=== PATIENT | female | born 1960 | race Caucasian/White ===

== ENCOUNTER 2019-02-23 12:29 | Outpatient (CLI) | payer MEDICARE, SELFPAY ==
--- NOTE | 2019-02-23 12:46 | XR_ITS ---
WS: [id number] LUMBAR SPINE TECHNIQUE: 3 views of the lumbar spine CLINICAL INFORMATION: LOW BACK PAIN COMPARISON: January 08, 2016 FINDINGS: Five [id number]-vmb-vbfxzot lumbar vertebral bodies. Postoperative changes lower thoracic and lumbar spine e xtending from T12 through L4. Lamina hooks. Dorsal lateral bone graft material. No evidence of hardwa re loosening. Interbody bone fusion L2-3 with lateral maximus and screw fixation. Grade 1 anterolisthesis L4 on L5 measuring 8 mm. This is increased from 2016. Dorsal interconnecting rods appear intact. Disc space narrowing worse at L4-L5 and L5-S1. XR/XR lumbar spine 2-3V* [id number] IMPRESSION: 1. Prior postoperative changes dorsal laminectomy defects with maximus fixation at T12-L4. 2. Interbody bony fusion with lateral maximus and screw fixation at L2-3. 3. Grade 1 anterolisthesis L4 on L5 is increased from previous. 4. Disc space narrowing worse L4-L5 and L5-S1. 5. No evidence of hardware loosening.
== END 2019-02-23 12:30 | disposition home or self-care (01) ==
LOC: RAD 12:36
PROVIDERS: Family Provider Family Medicine; PCP Family Medicine; Visit Provider Family Medicine
DX: M96.1 Postlaminectomy syndrome, not elsewhere classified (principal); M54.5 Low back pain
CPT/HCPCS: 72100

== ENCOUNTER 2019-04-08 16:10 | Outpatient (CLI) | payer MEDICARE, SELFPAY ==
--- NOTE | 2019-04-08 16:23 | MRR_ITS ---
PROCEDURE INFORMATION: Exam: MR Lumbar Spine Without Contrast. Exam date and time: 04/08/2019 4:45 PM Age: 59 years old Clinical indication: Condition or disease; Other: Lumbar radiculopathy; Prior surgery; Surgery date: 6+ months; Surgery type: Lumbar, date not provided TECHNIQUE: Imaging protocol: Multiplanar magnetic resonance images of the lumbar spine without intravenous contrast. COMPARISON: CR XR lumbar spine 2-3V* [id number] 02/23/2019 1:06 PM FINDINGS: Vertebrae: There is some distortion of detail relating to hardware in place posteriorly from T12 through L5 and along left lateral aspect L2 through L3. Mature interbody fusion is suggested at L2-L3. Perceived narrowing of spinal canal at L5 is at least partially artifactual in nature due to hardware artifacts. No obvious herniation of disc material into the lumbar spinal canal or other gross spinal canal lesions. Small disc protrusions suggested at T10-11 on the left does not produce significant spinal canal narrowing. Spinal cord: Normal signal. No cord compression. Reproductive: Multiple uterine lesions are suggestive of fibroids. Soft tissues: Unremarkable. MR/MR lumbar spine wo con* [id number] IMPRESSION: Some distortion of detail relating to hardware as above. Perceived narrowing spinal canal at L5 is suggested to be at least partially artifactual. No acute findings. Additional details as above.
== END 2019-04-08 16:11 | disposition home or self-care (01) ==
PROVIDERS: Family Provider Family Medicine; PCP Family Medicine; Visit Provider Family Medicine
DX: M54.16 Radiculopathy, lumbar region (principal)
CPT/HCPCS: 72148

== ENCOUNTER 2019-05-20 12:16 | Outpatient (CLI) | payer MEDICARE, SELFPAY ==
--- NOTE | 2019-05-20 12:23 | CT_ITS ---
WS: [id number] CT ABDOMEN AND PELVIS WITH CONTRAST HISTORY: RUQ PAIN TECHNIQUE: Imaging performed of the abdomen and pelvis with IV contrast. Single phase imaging of the abdomen. Coronal and sagittal reformats are submitted. All CT scans at [facility] use at least one of these dose optimization techniques: automated exposure control; mA and/or kV adjustment per patient size (includes targeted exams where dose is matched to clinical indication); or iterativ e reconstruction. IV CONTRAST: Omnipaque 300; 95 mL IV. Oral contrast: No DLP: 1661.1 mGy.cm COMPARISON: 04/26/2013 Lower thorax: Stable 10 mm nodule LEFT lung base. Heart size is normal. No hiatal hernia. Liver/biliary system: Moderately enlarged liver with hepatic steatosis. Gallbladder: Gallbladder is contracted with mild wall hyperemia. No adjacent inflammation. Pancreas: Normal. Spleen: Normal. Adrenal glands: Normal. Right kidney: Normal. Left kidney: Normal. Aorta: Normal. Lymphadenopathy: None. Free fluid: None. GI tract: Normal appendix. No GI tract obstruction. There is no free fluid surrounding the colon. Abdominal wall: Unremarkable abdominal wall. No hernia. Pelvis: Midline uterus. No pelvic mass or fluid. Visualized urinary bladder is negative. Bones: Extensive posterior lumbar hardware. CT/CT abdomen pelvis w con* [id number] IMPRESSION: 1. Contracted gallbladder may be due to chronic cholecystitis or nonfasting. 2. No bile duct dilatation. 3. Hepatic steatosis and moderate hepatomegaly. 4. Normal appendix. 5. No renal calcifications or obstruction.
[2019-05-20] MEDS: iohexol 300 mg/mL 100 mL Btl IV (12:41)
== END 2019-05-20 12:17 | disposition home or self-care (01) ==
LOC: CT 12:21
PROVIDERS: Family Provider Family Medicine; PCP Family Medicine; Visit Provider Family Medicine
DX: K76.0 Fatty (change of) liver, not elsewhere classified (principal); R16.0 Hepatomegaly, not elsewhere classified; R10.11 Right upper quadrant pain
CPT/HCPCS: 74177

== ENCOUNTER 2019-05-22 05:21 | Day surgery (SDC) | payer MEDICARE, SELFPAY ==
[2019-05-22] VITALS (14 sets, daily range): BP systolic 110–170; BP diastolic 69–125; PULSE 56–71; RESP 12–21; TEMP 36.1–37; O2SAT 95–100; BMI 38.9
--- NOTE | 2019-05-22 05:35 | USR_ITS ---
PROCEDURE INFORMATION: Exam: US Abdomen Limited, Right Upper Quadrant Exam date and time: 05/22/2019 6:47 AM Age: 59 years old Clinical indication: Abdominal pain; Additional info: R abd pain TECHNIQUE: Imaging protocol: Real-time ultrasound of the abdomen with image documentation. Examination was focused on the right upper quadrant. COMPARISON: CT abdomen pelvis w con* [id number] 05/20/2019 12:38 PM FINDINGS: Liver: Slight increased and inhomogeneous is echogenicity of the liver may indicate fatty infiltration. No focal hepatic abnormality. Gallbladder: Prominent area of echogenicity with strong acoustic shadowing in the gallbladder fossa. The appearance is compatible with gallbladder contracted around multiple gallstones. No obvious gallbladder wall thickening or pericholecystic fluid. Technologist states patient was tender over the gallbladder region during scanning. Common bile duct: No biliary dilation, common duct measures 3.5 mm. Pancreas: Visible pancreas unremarkable. Right kidney: Images of the right kidney show no hydronephrosis. US/US gall bladder [id number] IMPRESSION: 1. Appearance compatible with gallbladder contracted around multiple gallstones. 2. No biliary tree dilation. 3. Other findings discussed above. Hepatic
[2019-05-22 06:19] LABS: Basophils % 0.3 %; Eosinophils # 0.2 10^3/uL (0.0-0.8); Eosinophils % 1.7 %; Hematocrit 44.1 % (37.0-47.0); Hemoglobin 14.7 g/dL (11.5-15.3); Lymphocytes # 3.3 10^3/uL (0.8-4.8); Lymphocytes % 38.4 %; Mean Corpuscular HGB Conc 33.3 g/dL (30.0-36.0); Mean Corpuscular Hemoglobin 29.2 pg (28.0-34.0); Mean Corpuscular Volume 87.5 fL (81-99); Mean Platelet Volume 8.7 fL (7.4-10.4); Monocytes # 0.5 10^3/uL (0.2-0.9); Monocytes % 5.5 %; Neutrophils # 4.7 10^3/uL (1.8-7.7); Neutrophils % 53.9 %; Nucleated Red Blood Cells % 0 %; Platelet Count 277 10^3/cmm (130-400); Red Blood Count 5.04 10^6/uL (4.1-5.3); Red Cell Distribution Width 14.1 % (12.1-15.1); White Blood Count 8.7 10^3/uL (4.0-10.0)
--- NOTE | 2019-05-22 06:23 | W.ED.ABDPA2 ---
HPI - Abdominal Pain General: Chief Complaint: Abdominal Pain Stated Complaint: abdominal pain Time Seen by Provider: 05/22/19 06:21 History of Present Illness: HPI narrative: 59-year-old female presents with abdominal pain that has been present for 2 weeks.. She reports that she previously had imaging suggesting cholecystitis. She did have a CT on 05/20/2019 done as an outpatient that showed contraction of the gallbladder but none no signs of stones of hydrops or gallbladder wall thickening. She did not have any liver functions that I can see done in that same timeframe. Patient reports exacerbation of symptoms with eating just about anything at this point MD elicited complaint: abdominal pain Onset (ago): week(s) Pain Consistency: intermittent Location: RUQ Severity: moderate Quality: cramping Associated Symptoms: Denies bloating, chills, coffee ground emesis, constipation, diarrhea, dysuria, fever(s), hematochezia, hematemesis, melena, nausea and vomiting Review of Systems Const: Denies: fever, chills, body aches, change in appetite, fatigue or malaise ENMT: Denies: throat pain, ear pain, nasal discharge or nasal congestion Card: Denies: chest pain, edema, shortness of breath on exertion or shortness of breath when lying down Resp: Denies: shortness of breath, productive cough or non-productive cough GI: Denies: abdominal pain, nausea, vomiting, vomiting blood, coffee grounds in vomit, diarrhea, constipation, bloating, blood in stool or black tarry stool : Denies: flank pain, difficulty urinating, painful urination, urinary frequency or urinary urgency Skin/Breast: Denies: rash or itching PFSH ED PFSH: Social History Smoking and tobacco status: never smoked Physical Exam Const: COMMON NORMALS: no apparent distress GENERAL APPEARANCE: cooperative and comfortable ORIENTATION/CONSCIOUSNESS: Yes awake, Yes oriented to person, Yes oriented to place and Yes oriented to time HENMT: COMMON NORMALS: normocephalic, head/scalp atraumatic, hearing grossly normal bilaterally, external ears normal, EAC's normal, TM's normal bilaterally, nasal mucous membranes and turbinates normal, moist oral mucous membranes and oropharynx normal HEAD & SCALP: normocephalic and atraumatic NOSE: nasal mucous membranes and turbinates normal EXTERNAL EAR: Yes external ears normal EXTERNAL AUDITORY CANAL: EAC's normal TYMPANIC MEMBRANE: TM's normal bilaterally Eye: COMMON NORMALS: PERRL, EOMs intact bilaterally, conjunctivae normal and no scleral icterus CONJUNCTIVA: Yes conjunctivae normal PUPIL: Yes PERRL Neck/C-Spine: COMMON NORMALS: full ROM, no lymphadenopathy, supple and no JVD Lymph: LYMPHATIC: no lymphadenopathy noted and no lymphedema noted Resp: COMMON NORMALS: normal respiratory effort, no retractions, no use of accessory muscles and clear to auscultation bilaterally AUSCULTATION: clear to auscultation bilaterally Cardio: COMMON NORMALS: no JVD, regular rate, regular rhythm and no murmurs RATE: regular rate RHYTHM: regular rhythm GI: COMMON NORMALS: soft to palpation and no hepatosplenomegaly AUSCULTATION: Yes normoactive bowel sounds PALPATION: Yes soft, Yes tender (Positive Sarmiento sign) Details: RUQ, No guarding, Yes no hepatosplenomegaly, No hepatomegaly and No splenomegaly Extremity: COMMON NORMALS: normal to inspection, normal capillary refill, no clubbing, cyanosis or edema, no calf tenderness and no pedal edema Neuro: SENSORIUM/ORIENTATION: Yes oriented to person, Yes oriented to place and Yes oriented to time Skin: COMMON NORMALS: no rashes or lesions noted GENERAL SKIN EXAM: no rashes or lesions noted Course Vital Signs: Vital signs: Vital Signs Temperature 97.8 F 05/22/19 05:28 Pulse Rate 67 05/22/19 08:02 Respiratory Rate 17 05/22/19 08:02 Blood Pressure 170/125 05/22/19 08:02 Pulse Oximetry 99 05/22/19 08:02 MDM - Abdominal Pain MDM Narrative: Medical decision making narrative: Laboratory data tests show slightly elevated transaminases but alk phos and T bili are normal there is no thickening of the gallbladder wall on ultrasound no hydrops. There is a lot of stones no dilation of common bile duct is her second visit in 3 days?Dr. Lazaro Pruett go ahead and do cholecystectomy as morning she has not eaten since yesterday she does take aspirin regularly did not take any today. Her white count is normal at this point will put her on any antibiotics being prepped for surgery Dr. Willis will see her in the ER and take her directly to the operating room. Lab Data: Labs: Lab Results 05/22/19 05/22/1920 Range/Units 05:50 06:05 06:05 WBC 8.7 (4.0-10.0) 10^3/ uL RBC 5.04 (4.1-5.3) 10^6/u L Hgb 14.7 (11.5-15.3) g/dL Hct 44.1 (37.0-47.0) % MCV 87.5 (81-99) fL MCH 29.2 (28.0-34.0) pg MCHC 33.3 (30.0-36.0) g/dL RDW 14.1 (12.1-15.1) % Plt Count 277 (130-400) 10^3/c mm MPV 8.7 (7.4-10.4) fL Neut % (Auto) 53.9 % Lymph % (Auto) 38.4 % [place] % (Auto) 5.5 % Eos % (Auto) 1.7 % Baso % (Auto) 0.3 % Neut # (Auto) 4.7 (1.8-7.7) 10^3/u L Lymph # (Auto) 3.3 (0.8-4.8) 10^3/u L [place] # (Auto) 0.5 (0.2-0.9) 10^3/u L Eos # (Auto) 0.2 (0.0-0.8) 10^3/u L Baso # (Auto) 0.0 (0.0-0.1) 10^3/u L Nucleated RBC % (a uto) 0 % Nucleated RBCs # 0.0 /100WBC Sodium 141 (136-145) mmol/L Potassium 3.8 (3.5-5.1) mmol/L Chloride 102 (98-107) mmol/L Carbon Dioxide 25 (22-29) mmol/L Anion Gap 17.8 (5-19) BUN 11 (8-23) mg/dL Creatinine 0.6 (0.5-0.9) mg/dL GFR Calculation 102.0 (90-130) mL/min Glucose 147 H (65-115) mg/dL Calculated Osmolal ity 291 (285-295) mOsm/k g Calcium 10.0 (8.5-10.5) mg/dL Total Bilirubin 0.3 (0.15-1.2) mg/dL AST 45 H (0-32) U/L ALT 45 H (0-33) U/L Alkaline Phosphata se 75 (35-105) IU/L C-Reactive Protein 9.5 H (0.0-4.9) mg/L Total Protein 8.0 (6.6-8.7) g/dL Albumin 4.6 (3.5-5.2) g/dL Globulin 3.4 (1.3-4.6) g/dL Lipase 22 (13-60) U/L Urine Color Yellow (Yellow) Urine Appearance Cloudy (CLEAR) Urine pH 5 (5-7) Ur Specific Gravit y 1.020 (1.005-1.030) Urine Protein Neg (Negative) Urine Glucose (UA) Norm (Normal) Urine Ketones Negative (Negative) Urine Blood 2+ H (Negative) Urine Nitrate Negative (Negative) Urine Bilirubin Neg (NEGATIVE) Urine Urobilinogen Norm (Negative) mg/dL Ur Leukocyte Marquita ase Negative (Negative) Urine RBC 0-4 H (0-2) /hpf Urine WBC 0-4 H (0-5) /hpf Ur Squamous Epith Cells 15-25 H (0-5) Urine Bacteria 1+ H (NONE) Discharge Plan Discharge Patient Disposition: Placed in Observation Clinical Impression: Cholelithiasis and acute cholecystitis without obstruction Condition: Stable Coding Level of Care Code 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
[2019-05-22 06:38] LABS: Add Urine Microscopic? YES; Bacteria Urine 1+; Bilirubin Urine Neg (NEGATIVE); Blood Urine 2+ (Negative); Glucose Urine UA Norm (Normal); Ketones Urine Negative (Negative); Leukocyte Esterase Urine Negative (Negative); Nitrate Urine Negative (Negative); Protein Urine Neg (Negative); RBC Urine 0-4 /hpf (0-2); Squamous Epithelial Cell Urine 15-25 (0-5); Urine Appearance Cloudy (CLEAR); Urine Color Yellow (Yellow); Urobilinogen Urine Norm (Negative); WBC Urine 0-4 /hpf (0-5); pH Urine 5 (5-7)
[2019-05-22 06:41] LABS: Alanine Aminotransferase 45 U/L (0-33); Albumin Level 4.6 g/dL (3.5-5.2); Alkaline Phosphatase 75 IU/L (35-105); Anion Gap 17.8 (5-19); Aspartate Amino Transferase 45 U/L (0-32); Blood Urea Nitrogen 11 mg/dL (8-23); C Reactive Protein 9.5 mg/L (0.0-4.9); Carbon Dioxide 25 mmol/L (22-29); Chloride 102 mmol/L (98-107); Globulin 3.4 g/dL (1.3-4.6); Glucose 147 mg/dL (65-115); Lipase 22 U/L (13-60); Osmolality Calculated 291 mOsm/kg (285-295); Potassium 3.8 mmol/L (3.5-5.1); Sodium 141 mmol/L (136-145); Total Bilirubin 0.3 mg/dL (0.15-1.2)
[2019-05-22] MEDS: ketorolac 30 mg/mL INJ IVP (07:06)
--- NOTE | 2019-05-22 07:20 | PC.NURSE ---
Pt placed in a gown and updated on upcoming surgery.
--- NOTE | 2019-05-22 08:34 | ANES.PREANE2 ---
Pre-Anesthetic Assessment Pre-Anesthetic Assessment: Height/Weight: Height 1.63 m Weight 102.965 kg Temp Pulse Resp BP Pulse Ox 97.8 F 63 16 166/105 98 05/22/19 05:28 05/22/19 08:19 05/22/19 08:19 05/22/19 08:19 05/22/19 08:19 Preop Diagnosis: Symptomatic cholelithiasis Proposed Procedure: cholecystectomy Familial anesthetic complications: None Was Beta Maylin taken within 24 hours: Yes Last intake: NPO > 8 hrs Social: Social History: Alcohol and No tobacco Comment: 4 drinks a day of vodka every other day - no alchol in 4 day Exam: Pre-Anes Outpt Exam: alert, oriented x 3, clear to auscultation bilaterally and regular rate & rhythm Airway: Cervical ROM: WNL MP: 2 Dentition: Full Pulmonary: Pulmonary: None reported CV/HEM: CV/HEM: HTN and Palp (on metoprolol) Comments: Leaky valve - unable to find any documentation : : None reported Hepatic: Hepatic: None reported Comments: liver inflamed/enlarged GI: GI: None reported Metabolic: Metabolic: Morbid obesity Musc/skel: Musc/skel: Lower Back Pain Neuropsych: Neuropsych: None reported Anesthetic Plan: ASA status: 3E Anesthesia: General Risk of > 500 ml blood loss (7ml/kg in children): No PFSH Anesthesia PFSH: Social History Smoking and tobacco status: never smoked Data Anesthesia CBC & Chem 7: 05/22/19 06:05 05/22/19 06:05 Other Labs: Laboratory Results - last 48 hr 05/22/19 05/22/19 05/22/19 05:50 06:05 06:05 WBC 8.7 RBC 5.04 Hgb 14.7 Hct 44.1 MCV 87.5 MCH 29.2 MCHC 33.3 RDW 14.1 Plt Count 277 MPV 8.7 Neut % (Auto) 53.9 Lymph % (Auto) 38.4 [place] % (Auto) 5.5 Eos % (Auto) 1.7 Baso % (Auto) 0.3 Neut # (Auto) 4.7 Lymph # (Auto) 3.3 [place] # (Auto) 0.5 Eos # (Auto) 0.2 Baso # (Auto) 0.0 Nucleated RBC % (auto) 0 Nucleated RBCs # 0.0 Sodium 141 Potassium 3.8 Chloride 102 Carbon Dioxide 25 Anion Gap 17.8 BUN 11 Creatinine 0.6 GFR Calculation 102.0 Glucose 147 H Calculated Osmolality 291 Calcium 10.0 Total Bilirubin 0.3 AST 45 H ALT 45 H Alkaline Phosphatase 75 C-Reactive Protein 9.5 H Total Protein 8.0 Albumin 4.6 Globulin 3.4 Lipase 22 Urine Color Yellow Urine Appearance Cloudy Urine pH 5 Ur Specific [place] 1.020 Urine Protein Neg Urine Glucose (UA) Norm Urine Ketones Negative Urine Blood 2+ H Urine Nitrate Negative Urine Bilirubin Neg Urine Urobilinogen Norm Ur Leukocyte Esterase Negative Urine RBC 0-4 H Urine WBC 0-4 H Ur Squamous Epith Cells 15-25 H Urine Bacteria 1+ H Cardiac Studies: No Data to Display
--- NOTE | 2019-05-22 08:56 | P.HP_ITS ---
Providers/Chief Complaint Primary Care Provider: Tito Montoya MD Chief Complaint: abdominal pain History of Present Illness Vivian Goff is a 59 year old female who has been dealing with right upper quadrant pain radiating to the back associated nausea for the last 2 weeks. Patient states that the pain was initially worse with eating but now is constant. She denies any vomiting fevers chills or jaundice. No similar episodes in the past. Patient states that she drinks vodka every other night due to chronic low back pain since she does not like to take pain medications. No history of peptic ulcer disease. Review of Systems General: Reports: 10 or more systems reviewed and unremarkable except in HPI and below Medications/Allergies Home Medications Medication Instructions Recorded Confirmed Last Taken Type Unable to Assess 05/22/19 05/22/19 Unknown History Allergies Allergy/AdvReac Type Severity Reaction Status Date / Time morphine Allergy ALGY-Hives Verified 05/22/19 05:28 PFSH Acute PFSH: Medical History Hyperlipidemia Hypertension Surgical History History of back surgery History of delivery Social History Smoking and tobacco status: never smoked Vitals/I&O/Wt Last Vital Signs Temp 97.8 F 05/22/19 05:28 Pulse 63 05/22/19 08:19 Resp 16 05/22/19 08:19 BP 166/105 05/22/19 08:19 Pulse Ox 98 05/22/19 08:19 Weight last 48 hrs Weight 227 lb Physical Exam Narrative: EXAM NARRATIVE: HEENT: Normocephalic Eye: Sclera /conjunctiva normal Respiratory and chest: Bilateral clear breath sounds on auscultation Cardiovascular: Normal S1 and S2 heart sounds Abdomen: Soft to palpation, tender right upper quadrant, well-healed Pfannenstiel scar Neurological: Oriented to place person and time Skin: Intact, no lesions appreciated on gross exam Data : 05/22/19 06:05 05/22/19 06:05 A&P Assessment and plan (1) Cholelithiasis and acute cholecystitis without obstruction: Plan for laparoscopic possible open cholecystectomy procedure, risks, benefits and alternatives have been discussed with the patient who wishes to proceed with surgery. 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
[2019-05-22] MEDS: sodium chloride 0.9% 1,000 ML 30 ML IV (09:30)
--- NOTE | 2019-05-22 10:06 | SUR.PREOP ---
6204 PT ALERT TALKATIVE TO DR PHIPPS, PT STATES SHE DOES NOT LIKE TO TAKE PAIN MEDICATIONS, IV TO LT AC HEPLOCK, FLUSHED WITH GOOD BLOOD RETURN VSS SIDE RAILS UP X 2 PT CALL LIGHT WITHIN REACH.
--- NOTE | 2019-05-22 10:49 | PM.OP ---
Operative Report Date of procedure: May 22, 2019 Pre-op Diagnosis: Symptomatic cholelithiasis Post-op Diagnosis: Cholelithiasis Procedure Done: Laparoscopic cholecystectomy Specimens removed/disposition: Gallbladder Surgeon: Johnathan Willis Anesthesia: General Estimated blood loss (mL): 10 Condition: stable Disposition: PACU Procedure: The patient was taken to the operating room and was intubated under general anesthesia. After the antibiotic had been administered, the abdomen was prepped and draped in a sterile manner. Using a #15 blade, a 1 centimeter infraumbilical curvilinear incision was made and using an open Gerardo technique the peritoneal cavity was entered. A 10 millimeter port was placed and 15 millimeters of pneumoperitoneum was created. A 10 millimeter, 30 degrees scope was then introduced. Three 5 millimeter ports were placed in the epigastric, midclavicular and the anterior axillary line two fingerbreadths below the costal margin on the right side under the direct visualization. Ratcheted forceps were introduced into the lateral most port and was used to retract the fundus of the gallbladder cephalad and using forceps the infundibulum of the gallbladder was retracted laterally. Using L-hook cautery the peritoneum overlying the Calot's triangle was opened medially and laterally until the cystic duct and the cystic artery were skeletonized. Dissection was carried along the body of the gallbladder and after ensuring critical view of safety, 4 clips applied on the cystic duct and 3 clips applied on the cystic artery and cut leaving, 3 clips on the remaining portion of the duct and 2 clips on the remaining portion of the artery. The rest of the gallbladder was dissected off the liver using L-hook cautery. There was no bleeding or bile leaking noted from the gallbladder fossa and the clips appeared to be in place. An EndoCatch bag was introduced to remove the gallbladder. All the ports were removed under direct visualization and there was no bleeding noted from the port sites. The fascia of the umbilicus was closed using [id number] 0 Vicryl sutures and the subcutaneous tissue was approximated using 3-0 Vicryl sutures. The skin at all four ports were closed using 4-0 Monocryl and Dermabond. A total of 10 millimeters of 0.5% Marcaine was infiltrated around the port sites. The patient was stable throughout the procedure.
--- NOTE | 2019-05-22 11:01 | SUR.PHASEI ---
pt awakes easily to voice denies pain and nausea pt quickly back to sleep pt requests mask off pt on ra trial. abd large and soft with 4 sites d/i
--- NOTE | 2019-05-22 11:30 | SUR.PHASEI ---
1115 PT TO OPS AWAKE ALERT TAKING SIPS OF SODA PT C/O OF MOSTLY THROAT AND POSTERIOR NECK PAIN PT TAKING COOL LIQ AND WARM BLANKET TO NECK PT DOES NOT TOLERATE ANY PO PAIN MEDS REQIESTS TORDOL FOR PAIN DR PHIPPS NOTIFIED ORDERS RECIEVED FOR 5MG TORDOL IV BEFORE DISCHARGE FOR PAIN
[2019-05-22] MEDS: ketorolac 30 mg/mL INJ 15 MG IVP (11:42)
--- NOTE | 2019-05-22 12:27 | SUR.PHASEII ---
PATIENT MEETS DISCHARGE CRITERIA AND IS READY TO GO HOME. SHE IS CURRENTLY DRESSED AND WAITING ON HER RIDE.
== END 2019-05-22 12:35 | disposition home or self-care (01) ==
LOC: ER 06:21 → OR 07:25
PROVIDERS: Emergency Medicine; Emergency Provider Family Medicine; Family Provider Family Medicine; PCP Family Medicine; Visit Provider Surgery
PROC: 0FT44ZZ Resection of Gallbladder, Percutaneous Endoscopic Approach (ICD-10-PCS; CPT 47562; principal; 2019-05-22 10:00)
DX: K80.10 Calculus of gallbladder with chronic cholecystitis without obstruction (principal); E78.5 Hyperlipidemia, unspecified; I10 Essential (primary) hypertension; E66.01 Morbid (severe) obesity due to excess calories; Z68.39 Body mass index [BMI] 39.0-39.9, adult
CPT/HCPCS: 47562; 12345; 76705; 80053; 81001; 83690; 85025; 86140; 88304; 96375; 99283; A9270; J1885; J2250; J2405; J3010; J3490; J7030

== ENCOUNTER 2019-10-16 12:28 | Emergency (ER) | payer MEDICARE, SELFPAY ==
[2019-10-16 12:37] VITALS: BP 153/103; PULSE 91; RESP 16; TEMP 36.5; O2SAT 98; BMI 38.9
--- NOTE | 2019-10-16 12:44 | XRR_ITS ---
PROCEDURE INFORMATION: Exam: XR Chest, 1 View Exam date and time: 10/16/2019 12:45 PM Age: 59 years old Clinical indication: Shortness of breath; Additional info: Short of breath TECHNIQUE: Imaging protocol: XR of the chest Views: 1 view. COMPARISON: CR Chest 1 [place] [id number] 08/12/2013 9:30 PM FINDINGS: Lungs: Unremarkable. No consolidation. Pleural space: Unremarkable. No pleural effusion. No pneumothorax. Heart/Mediastinum: Unremarkable. No cardiomegaly. Bones/joints: Surgical hardware is seen in the lumbar spine XR/XR chest 1V portable [id number] IMPRESSION: No acute findings. Surgical hardware lumbar spine
--- NOTE | 2019-10-16 12:45 | ECG_ITS ---
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 Measurements Intervals [place] Rate: 79 P: 28 HI: 144 QRS: 13 QRSD: 85 T: -45 QT: 370 QTc: 426 Interpretive Statements SINUS RHYTHM ST DEVIATION AND MODERATE T-WAVE ABNORMALITY, CONSIDER ANTEROLATERAL ISCHEMIA [-0.1+ mV T WAVE IN V3-V6] ST DEVIATION AND MODERATE T-WAVE ABNORMALITY, CONSIDER INFERIOR ISCHEMIA [-0.1+ mV T WAVE IN II/aVF] No previous ECG available for comparison Electronically Signed On 10-17-2019 0:18:17 CDT by Rochelle Wilkerson M.D. [email or web address]
[2019-10-16 13:21] LABS: Basophils % 0.5 %; Eosinophils # 0.1 10^3/uL (0.0-0.8); Eosinophils % 1.7 %; Hematocrit 43.2 % (37.0-47.0); Hemoglobin 14.9 g/dL (11.5-15.3); Lymphocytes # 3.4 10^3/uL (0.8-4.8); Lymphocytes % 40.4 %; Mean Corpuscular HGB Conc 34.5 g/dL (30.0-36.0); Mean Corpuscular Hemoglobin 29.4 pg (28.0-34.0); Mean Corpuscular Volume 85.2 fL (81-99); Mean Platelet Volume 9.6 fL (7.4-10.4); Monocytes # 0.6 10^3/uL (0.2-0.9); Monocytes % 6.7 %; Neutrophils # 4.22 10^3/uL (1.8-7.7); Neutrophils % 50.5 %; Nucleated Red Blood Cells % 0 %; Platelet Count 281 10^3/cmm (130-400); Red Blood Count 5.07 10^6/uL (4.1-5.3); Red Cell Distribution Width 13.7 % (12.1-15.1); White Blood Count 8.4 10^3/uL (4.0-10.0)
[2019-10-16 13:49] LABS: D Dimer 0.33 ug/mIFEU (0-0.59)
[2019-10-16 13:56] LABS: Lactic Sepsis W/Reflex 1.4 mmol/L (0.5-2.2)
[2019-10-16 13:59] LABS: Troponin(5th) Baseline 8 ng/L (0-10)
[2019-10-16 14:07] LABS: Alanine Aminotransferase 69 U/L (0-33); Albumin Level 4.5 g/dL (3.5-5.2); Alkaline Phosphatase 118 IU/L (35-105); Anion Gap 25.4 (5-19); Aspartate Amino Transferase 44 U/L (0-32); Blood Urea Nitrogen 12 mg/dL (8-23); Calcium 9.7 mg/dL (8.5-10.5); Carbon Dioxide 15 mmol/L (22-29); Chloride 96 mmol/L (98-107); Globulin 3.5 g/dL (1.3-4.6); Glomerular Filtration Rate 73.2 mL/min (90-130); Glucose 418 mg/dL (65-115); NT Pro B Type Natriuretic Pept 80 pg/mL (0-125); Osmolality Calculated 290 mOsm/kg (285-295); Potassium 3.4 mmol/L (3.5-5.1); Sodium 133 mmol/L (136-145); Total Bilirubin 0.3 mg/dL (0.15-1.2)
--- NOTE | 2019-10-16 14:45 | ECG_ITS ---
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 Measurements Intervals [place] Rate: 67 P: 34 ME: 181 QRS: 0 QRSD: 88 T: -7 QT: 412 QTc: 437 Interpretive Statements SINUS RHYTHM MODERATE VOLTAGE CRITERIA FOR LVH, CONSIDER NORMAL VARIANT [MEETS CRITERIA IN ONE OF: R(aVL), S(V1), R(V5), R(V5/V6)+S(V1)] MODERATE T-WAVE ABNORMALITY, CONSIDER ANTERIOR ISCHEMIA [-0.1+ mV T WAVE IN V3/V4] Compared to ECG 10/16/2019 12:33:55 No significant changes Electronically Signed On 10-17-2019 0:35:04 CDT by Rochelle Wilkerson M.D. [email or web address]
[2019-10-16 14:51] LABS: Ketone (Acetest) Serum Positive (Negative)
[2019-10-16 15:13] LABS: ABG PCO2 26.9 mmHg (35-45); ABG PH Result 7.32 (7.35-7.45); Arterial Blood Gas Hematocrit 45.8 % (37-47); Base Excess ABG -10.4 mmol/L (-2.0-2.0); Blood Gas Operator Identificat glc; Blood Gas Sample Site Brachial, right; Blood Gas Sample Type Arterial; HCO3 ABG 13.9 mmol/L (22-26); Oxygen Device ROOM AIR; PO2 ABG 92.9 mmHg (80.0-100.0)
[2019-10-16 15:15] LABS: Blood Gas CCRB Time 1515
--- NOTE | 2019-10-16 15:35 | W.ED.SOB ---
HPI - SOB/Dyspnea General: Chief Complaint: Shortness of Breath/Dyspnea Stated Complaint: cp, sob, diabetic- bs 480 Time Seen by Provider: 10/16/19 12:42 History of Present Illness: HPI Narrative: This patient is a 59-year-old female who presents today with weakness, fatigue, shortness of breath. She said she has been feeling absolutely exhausted for several days and decided to check her blood sugar. She is a fairly new onset diabetic and was just put on metformin about a month ago. She did not have a glucometer at home but we got 1 yesterday. Her blood sugars been high. She has had symptoms consistent with high blood sugar such as polyuria and polydipsia. She denies cough or fever. She denies diarrhea and in fact that she has been more on the constipated side. MD elicited complaint: shortness of breath Pertinent past history: diabetes (Recent onset, started on metformin a month ago) Onset (ago): day(s) (4 5) Context: elevated blood glucose (Patient was feeling so badly she went and got a glucometer to check her blood sugars at home. Yesterday it was 300 something and today it was 450) Timing: constant and progressively worsening Severity: moderate Exacerbating factors: nothing Relieving factors: nothing Associated symptoms: Reports dizziness, lightheadedness, nausea, polydipsia and polyuria Review of Systems Card: Reports: lightheadedness GI: Reports: nausea Neuro: Reports: dizziness Endo: Reports: polyuria and polydipsia PFS ED PFSH: Medical History (Updated 10/16/19 @ 15:39 by Leigh Barbosa MD) Diabetes Hyperlipidemia Hypertension Surgical History History of back surgery History of delivery Status post laparoscopic cholecystectomy (05/22/19) Social History Smoking and tobacco status: never smoked Alcohol intake: former History of recent travel: No Physical Exam Const: COMMON NORMALS: no acute distress, patient oriented x3, no limitations and alert GENERAL APPEARANCE: cooperative and well kempt NUTRITIONAL APPEARANCE: obese HENMT: HEAD & SCALP: normal to inspection FACE & SINUS: normal facial exam Eye: GENERAL EYE: appearance normal, both eyes and all related structures Neck/C-Spine: COMMON NORMALS: supple, no meningeal signs and no JVD Chest: COMMONS NORMALS: normal inspection of the chest Resp: COMMON NORMALS: normal respiratory effort, No use of accessory muscles and clear to auscultation bilaterally AUSCULTATION: clear to auscultation bilaterally Cardio: COMMON NORMALS: no JVD, regular rate, regular rhythm and No murmurs present (Cardio) RATE: regular rate RHYTHM: regular rhythm GI: COMMON NORMALS: Normal to inspection, nondistended, normoactive bowel sounds present, Soft to palpation and non-tender INSPECTION: Yes normal to inspection AUSCULTATION: Yes normoactive bowel sounds PALPATION: Yes Soft to palpation Back/Pelvis: COMMON NORMALS: thoracic and lumbar spine normal to inspection Extremity: COMMON NORMALS: normal to inspection Neuro: COMMON NORMALS: patient oriented x3, moves all extremities, no focal motor deficits and no sensory deficits noted SENSORIUM/ORIENTATION: Yes alert MENINGEAL SIGNS: Yes no meningeal signs Psych: COMMON NORMALS: mental status grossly normal, cooperative and normal affect APPEARANCE: Yes well kempt Skin: COMMON NORMALS: no rashes or lesions noted and turgor normal GENERAL SKIN EXAM: no rashes or lesions noted and turgor normal Course ED course: Blood sugar in the ED was 418. CO2 is 15. pH was 7.3. LFTs were slightly elevated. Lactate was 1.4. Anion gap was 25. Initial troponin was 8. BNP is 80. This patient is a relatively new onset diabetic who was started on metformin. This does not seem to be adequately controlling her blood sugar and she also has developed a ketoacidosis with it. She may require insulin as a long-term medication. Going to start insulin here in the department and get her admitted for management of ketoacidosis. Reevaluation(s): Reevaluation #1: No ICU beds here at [facility]. I spoke with Dr. Parnell at [facility] and he has accepted her for transfer to their ICU. Vital Signs: Vital signs: Vital Signs Temperature 97.7 F 10/16/19 12:37 Pulse Rate 73 10/16/19 20:11 Respiratory Rate 16 10/16/19 20:11 Blood Pressure 120/79 10/16/19 20:11 Pulse Oximetry 100 10/16/19 20:11 MDM - SOB/Dyspnea MDM Narrative: Medical decision making narrative: Lactic acidosis related to metformin, ketoacidosis related to diabetes. Acute coronary syndrome, infectious process, other endocrine dysfunction. Lab Data: Labs: Lab Results 10/16/19 10/16/19 10/16/19 Range/Units 13:09 13:09 13:09 WBC 8.4 (4.0-10.0) 10^3/ uL RBC 5.07 (4.1-5.3) 10^6/u L Hgb 14.9 (11.5-15.3) g/dL Hct 43.2 (37.0-47.0) % MCV 85.2 (81-99) fL MCH 29.4 (28.0-34.0) pg MCHC 34.5 (30.0-36.0) g/dL RDW 13.7 (12.1-15.1) % Plt Count 281 (130-400) 10^3/c mm MPV 9.6 (7.4-10.4) fL Neut % (Auto) 50.5 % Lymph % (Auto) 40.4 % Morris % (Auto) 6.7 % Eos % (Auto) 1.7 % Baso % (Auto) 0.5 % Neut # (Auto) 4.22 (1.8-7.7) 10^3/u L Lymph # (Auto) 3.4 (0.8-4.8) 10^3/u L Morris # (Auto) 0.6 (0.2-0.9) 10^3/u L Eos # (Auto) 0.1 (0.0-0.8) 10^3/u L Baso # (Auto) 0.0 (0.0-0.1) 10^3/u L Nucleated RBC % (a uto) 0 % Nucleated RBCs # 0.0 /100WBC D-Dimer 0.33 (0-0.59) ug/mIFE U Specimen Type Sample Site ABG pH (7.35-7.45) ABG pCO2 (35-45) mmHg ABG pO2 (80.0-100.0) mmH g ABG HCO3 (22-26) mmol/L ABG Base Excess (-2.0-2.0) mmol/ L Lazaro Test Hematocrit (37-47) % O2 Delivery Device FiO2 % Financial Risk Manager ID Blood Gas Notified Time Sodium 133 L (136-145) mmol/L Potassium 3.4 L (3.5-5.1) mmol/L Chloride 96 L (98-107) mmol/L Carbon Dioxide 15 L (22-29) mmol/L Anion Gap 25.4 H (5-19) BUN 12 (8-23) mg/dL Creatinine 0.8 (0.5-0.9) mg/dL GFR Calculation 73.2 L (90-130) mL/min Glucose 418 H (65-115) mg/dL POC Glucose (70-110) mg/dL Calculated Osmolal ity 290 (285-295) mOsm/k g Lactic Acid (0.5-2.2) mmol/L Calcium 9.7 (8.5-10.5) mg/dL Phosphorus (2.5-4.5) mg/dL Magnesium (1.7-2.3) mg/dL Total Bilirubin 0.3 (0.15-1.2) mg/dL AST 44 H (0-32) U/L ALT 69 H (0-33) U/L Alkaline Phosphata se 118 H (35-105) IU/L Troponin T Baselin e (0-10) ng/L Troponin T 120 Min morongo (0-10) ng/L Delta Troponin T (0-10) ABS# Troponin T Hi Sens 6Hr (0-10) ng/L Troponin T Hi Sens 6Hr Delta (0-12) ng/L NT-Pro-B Natriuret Pep 80 (0-125) pg/mL Total Protein 8.0 (6.6-8.7) g/dL Albumin 4.5 (3.5-5.2) g/dL Globulin 3.5 (1.3-4.6) g/dL Urine Color (Yellow) Urine Appearance (CLEAR) Urine pH (5-7) Ur Specific Gravit y (1.005-1.030) Urine Protein (Negative) Urine Glucose (UA) (Normal) Urine Ketones (Negative) Urine Blood (Negative) Urine Nitrate (Negative) Urine Bilirubin (NEGATIVE) Urine Urobilinogen (Negative) mg/dL Ur Leukocyte Marquita ase (Negative) Serum Ketones (Negative) 10/16/19 10/16/19 10/16/19 Range/Units 13:09 13:09 13:09 WBC (4.0-10.0) 10^3/ uL RBC (4.1-5.3) 10^6/u L Hgb (11.5-15.3) g/dL Hct (37.0-47.0) % MCV (81-99) fL MCH (28.0-34.0) pg MCHC (30.0-36.0) g/dL RDW (12.1-15.1) % Plt Count (130-400) 10^3/c mm MPV (7.4-10.4) fL Neut % (Auto) % Lymph % (Auto) % Morris % (Auto) % Eos % (Auto) % Baso % (Auto) % Neut # (Auto) (1.8-7.7) 10^3/u L Lymph # (Auto) (0.8-4.8) 10^3/u L Morris # (Auto) (0.2-0.9) 10^3/u L Eos # (Auto) (0.0-0.8) 10^3/u L Baso # (Auto) (0.0-0.1) 10^3/u L Nucleated RBC % (a uto) % Nucleated RBCs # /100WBC D-Dimer (0-0.59) ug/mIFE U Specimen Type Sample Site ABG pH (7.35-7.45) ABG pCO2 (35-45) mmHg ABG pO2 (80.0-100.0) mmH g ABG HCO3 (22-26) mmol/L ABG Base Excess (-2.0-2.0) mmol/ L Lazaro Test Hematocrit (37-47) % O2 Delivery Device FiO2 % Financial Risk Manager ID Blood Gas Notified Time Sodium (136-145) mmol/L Potassium (3.5-5.1) mmol/L Chloride (98-107) mmol/L Carbon Dioxide (22-29) mmol/L Anion Gap (5-19) BUN (8-23) mg/dL Creatinine (0.5-0.9) mg/dL GFR Calculation (90-130) mL/min Glucose (65-115) mg/dL POC Glucose (70-110) mg/dL Calculated Osmolal ity (285-295) mOsm/k g Lactic Acid 1.4 (0.5-2.2) mmol/L Calcium (8.5-10.5) mg/dL Phosphorus (2.5-4.5) mg/dL Magnesium (1.7-2.3) mg/dL Total Bilirubin (0.15-1.2) mg/dL AST (0-32) U/L ALT (0-33) U/L Alkaline Phosphata se (35-105) IU/L Troponin T Baselin e 8 (0-10) ng/L Troponin T 120 Min morongo (0-10) ng/L Delta Troponin T (0-10) ABS# Troponin T Hi Sens 6Hr (0-10) ng/L Troponin T Hi Sens 6Hr Delta (0-12) ng/L NT-Pro-B Natriuret Pep (0-125) pg/mL Total Protein (6.6-8.7) g/dL Albumin (3.5-5.2) g/dL Globulin (1.3-4.6) g/dL Urine Color (Yellow) Urine Appearance (CLEAR) Urine pH (5-7) Ur Specific Gravit y (1.005-1.030) Urine Protein (Negative) Urine Glucose (UA) (Normal) Urine Ketones (Negative) Urine Blood (Negative) Urine Nitrate (Negative) Urine Bilirubin (NEGATIVE) Urine Urobilinogen (Negative) mg/dL Ur Leukocyte Marquita ase (Negative) Serum Ketones Positive H (Negative) 10/16/19 10/16/19 10/16/19 Range/Units 15:00 15:00 15:04 WBC (4.0-10.0) 10^3/ uL RBC (4.1-5.3) 10^6/u L Hgb (11.5-15.3) g/dL Hct (37.0-47.0) % MCV (81-99) fL MCH (28.0-34.0) pg MCHC (30.0-36.0) g/dL RDW (12.1-15.1) % Plt Count (130-400) 10^3/c mm MPV (7.4-10.4) fL Neut % (Auto) % Lymph % (Auto) % Morris % (Auto) % Eos % (Auto) % Baso % (Auto) % Neut # (Auto) (1.8-7.7) 10^3/u L Lymph # (Auto) (0.8-4.8) 10^3/u L Morris # (Auto) (0.2-0.9) 10^3/u L Eos # (Auto) (0.0-0.8) 10^3/u L Baso # (Auto) (0.0-0.1) 10^3/u L Nucleated RBC % (a uto) % Nucleated RBCs # /100WBC D-Dimer (0-0.59) ug/mIFE U Specimen Type Arterial Sample Site Brachial, right ABG pH 7.32 L (7.35-7.45) ABG pCO2 26.9 L (35-45) mmHg ABG pO2 92.9 (80.0-100.0) mmH g ABG HCO3 13.9 L (22-26) mmol/L ABG Base Excess -10.4 L (-2.0-2.0) mmol/ L Lazaro Test N/a Hematocrit 45.8 (37-47) % O2 Delivery Device Room air FiO2 21.0 % Financial Risk Manager ID glc Blood Gas Notified Time 1515 Sodium (136-145) mmol/L Potassium (3.5-5.1) mmol/L Chloride (98-107) mmol/L Carbon Dioxide (22-29) mmol/L Anion Gap (5-19) BUN (8-23) mg/dL Creatinine (0.5-0.9) mg/dL GFR Calculation (90-130) mL/min Glucose (65-115) mg/dL POC Glucose (70-110) mg/dL Calculated Osmolal ity (285-295) mOsm/k g Lactic Acid (0.5-2.2) mmol/L Calcium (8.5-10.5) mg/dL Phosphorus 3.4 (2.5-4.5) mg/dL Magnesium 2.0 (1.7-2.3) mg/dL Total Bilirubin (0.15-1.2) mg/dL AST (0-32) U/L ALT (0-33) U/L Alkaline Phosphata se (35-105) IU/L Troponin T Baselin e (0-10) ng/L Troponin T 120 Min morongo 8.32 (0-10) ng/L Delta Troponin T 0.32 (0-10) ABS# Troponin T Hi Sens 6Hr (0-10) ng/L Troponin T Hi Sens 6Hr Delta (0-12) ng/L NT-Pro-B Natriuret Pep (0-125) pg/mL Total Protein (6.6-8.7) g/dL Albumin (3.5-5.2) g/dL Globulin (1.3-4.6) g/dL Urine Color (Yellow) Urine Appearance (CLEAR) Urine pH (5-7) Ur Specific Gravit y (1.005-1.030) Urine Protein (Negative) Urine Glucose (UA) (Normal) Urine Ketones (Negative) Urine Blood (Negative) Urine Nitrate (Negative) Urine Bilirubin (NEGATIVE) Urine Urobilinogen (Negative) mg/dL Ur Leukocyte Marquita ase (Negative) Serum Ketones (Negative) 10/16/19 10/16/19 10/16/19 Range/Units 15:45 16:34 18:33 WBC (4.0-10.0) 10^3/ uL RBC (4.1-5.3) 10^6/u L Hgb (11.5-15.3) g/dL Hct (37.0-47.0) % MCV (81-99) fL MCH (28.0-34.0) pg MCHC (30.0-36.0) g/dL RDW (12.1-15.1) % Plt Count (130-400) 10^3/c mm MPV (7.4-10.4) fL Neut % (Auto) % Lymph % (Auto) % Morris % (Auto) % Eos % (Auto) % Baso % (Auto) % Neut # (Auto) (1.8-7.7) 10^3/u L Lymph # (Auto) (0.8-4.8) 10^3/u L Morris # (Auto) (0.2-0.9) 10^3/u L Eos # (Auto) (0.0-0.8) 10^3/u L Baso # (Auto) (0.0-0.1) 10^3/u L Nucleated RBC % (a uto) % Nucleated RBCs # /100WBC D-Dimer (0-0.59) ug/mIFE U Specimen Type Sample Site ABG pH (7.35-7.45) ABG pCO2 (35-45) mmHg ABG pO2 (80.0-100.0) mmH g ABG HCO3 (22-26) mmol/L ABG Base Excess (-2.0-2.0) mmol/ L Lazaro Test Hematocrit (37-47) % O2 Delivery Device FiO2 % Financial Risk Manager ID Blood Gas Notified Time Sodium (136-145) mmol/L Potassium (3.5-5.1) mmol/L Chloride (98-107) mmol/L Carbon Dioxide (22-29) mmol/L Anion Gap (5-19) BUN (8-23) mg/dL Creatinine (0.5-0.9) mg/dL GFR Calculation (90-130) mL/min Glucose (65-115) mg/dL POC Glucose 325 205 (70-110) mg/dL Calculated Osmolal ity (285-295) mOsm/k g Lactic Acid (0.5-2.2) mmol/L Calcium (8.5-10.5) mg/dL Phosphorus (2.5-4.5) mg/dL Magnesium (1.7-2.3) mg/dL Total Bilirubin (0.15-1.2) mg/dL AST (0-32) U/L ALT (0-33) U/L Alkaline Phosphata se (35-105) IU/L Troponin T Baselin e (0-10) ng/L Troponin T 120 Min morongo (0-10) ng/L Delta Troponin T (0-10) ABS# Troponin T Hi Sens 6Hr (0-10) ng/L Troponin T Hi Sens 6Hr Delta (0-12) ng/L NT-Pro-B Natriuret Pep (0-125) pg/mL Total Protein (6.6-8.7) g/dL Albumin (3.5-5.2) g/dL Globulin (1.3-4.6) g/dL Urine Color Yellow (Yellow) Urine Appearance Clear (CLEAR) Urine pH 5 (5-7) Ur Specific Gravit y 1.020 (1.005-1.030) Urine Protein Neg (Negative) Urine Glucose (UA) 4+ H (Normal) Urine Ketones 3+ H (Negative) Urine Blood Neg (Negative) Urine Nitrate Negative (Negative) Urine Bilirubin Neg (NEGATIVE) Urine Urobilinogen Norm (Negative) mg/dL Ur Leukocyte Marquita ase Negative (Negative) Serum Ketones (Negative) 10/16/19 10/16/19 Range/Units 19:20 19:21 WBC (4.0-10.0) 10^3/ uL RBC (4.1-5.3) 10^6/u L Hgb (11.5-15.3) g/dL Hct (37.0-47.0) % MCV (81-99) fL MCH (28.0-34.0) pg MCHC (30.0-36.0) g/dL RDW (12.1-15.1) % Plt Count (130-400) 10^3/c mm MPV (7.4-10.4) fL Neut % (Auto) % Lymph % (Auto) % Morris % (Auto) % Eos % (Auto) % Baso % (Auto) % Neut # (Auto) (1.8-7.7) 10^3/u L Lymph # (Auto) (0.8-4.8) 10^3/u L Morris # (Auto) (0.2-0.9) 10^3/u L Eos # (Auto) (0.0-0.8) 10^3/u L Baso # (Auto) (0.0-0.1) 10^3/u L Nucleated RBC % (a uto) % Nucleated RBCs # /100WBC D-Dimer (0-0.59) ug/mIFE U Specimen Type Sample Site ABG pH (7.35-7.45) ABG pCO2 (35-45) mmHg ABG pO2 (80.0-100.0) mmH g ABG HCO3 (22-26) mmol/L ABG Base Excess (-2.0-2.0) mmol/ L Lazaro Test Hematocrit (37-47) % O2 Delivery Device FiO2 % Financial Risk Manager ID Blood Gas Notified Time Sodium (136-145) mmol/L Potassium (3.5-5.1) mmol/L Chloride (98-107) mmol/L Carbon Dioxide (22-29) mmol/L Anion Gap (5-19) BUN (8-23) mg/dL Creatinine (0.5-0.9) mg/dL GFR Calculation (90-130) mL/min Glucose (65-115) mg/dL POC Glucose 113 (70-110) mg/dL Calculated Osmolal ity (285-295) mOsm/k g Lactic Acid (0.5-2.2) mmol/L Calcium (8.5-10.5) mg/dL Phosphorus (2.5-4.5) mg/dL Magnesium (1.7-2.3) mg/dL Total Bilirubin (0.15-1.2) mg/dL AST (0-32) U/L ALT (0-33) U/L Alkaline Phosphata se (35-105) IU/L Troponin T Baselin e (0-10) ng/L Troponin T 120 Min morongo (0-10) ng/L Delta Troponin T (0-10) ABS# Troponin T Hi Sens 6Hr 10.63 H (0-10) ng/L Troponin T Hi Sens 6Hr Delta 2.63 (0-12) ng/L NT-Pro-B Natriuret Pep (0-125) pg/mL Total Protein (6.6-8.7) g/dL Albumin (3.5-5.2) g/dL Globulin (1.3-4.6) g/dL Urine Color (Yellow) Urine Appearance (CLEAR) Urine pH (5-7) Ur Specific Gravit y (1.005-1.030) Urine Protein (Negative) Urine Glucose (UA) (Normal) Urine Ketones (Negative) Urine Blood (Negative) Urine Nitrate (Negative) Urine Bilirubin (NEGATIVE) Urine Urobilinogen (Negative) mg/dL Ur Leukocyte Marquita ase (Negative) Serum Ketones (Negative) Discharge Plan Discharge Patient Disposition: Xfer Short-Term Hosp Referrals: Tito Montoya MD [Primary Care Provider] - Discharge Date/Time: 10/16/19 20:12 Coding Level of Care Code ED Sound Recordist for Chg 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
[2019-10-16 15:43] LABS: Troponin 5 2HR 8.32 ng/L (0-10); Troponin 5 2HR Delta 0.32 ABS# (0-10)
[2019-10-16 16:05] LABS: Add Urine Microscopic? NO
[2019-10-16 16:11] LABS: Bilirubin Urine Neg (NEGATIVE); Blood Urine Neg (Negative); Glucose Urine UA 4+ (Normal); Ketones Urine 3+ (Negative); Leukocyte Esterase Urine Negative (Negative); Nitrate Urine Negative (Negative); Protein Urine Neg (Negative); Urine Appearance Clear (CLEAR); Urine Color Yellow (Yellow); Urobilinogen Urine Norm (Negative); pH Urine 5 (5-7)
[2019-10-16 16:33] LABS: Phosphorus 3.4 mg/dL (2.5-4.5)
[2019-10-16 16:38] LABS: Glucose Point of Care 325 mg/dL (70-110)
[2019-10-16] MEDS: potassium chloride ER 10 mEq Tablet 40 MEQ PO (17:29)
[2019-10-16] MEDS: insulin regular-human 250 UNIT in sodium chloride 0.9% 250 ML 8.1 UNIT IV (17:34)
[2019-10-16] MEDS: potassium chloride premix 40 MEQ/100 ML PREMIX 25 MEQ IV (17:36)
--- NOTE | 2019-10-16 17:45 | ECG_ITS ---
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 Measurements Intervals [place] Rate: 61 P: 33 AK: 185 QRS: 4 QRSD: 94 T: -5 QT: 427 QTc: 433 Interpretive Statements SINUS RHYTHM MINIMAL VOLTAGE CRITERIA FOR LVH, CONSIDER NORMAL VARIANT [MEETS CRITERIA IN ONE OF: R(aVL), S(V1), R(V5), R(V5/V6)+S(V1)] MODERATE T-WAVE ABNORMALITY, CONSIDER ANTEROLATERAL ISCHEMIA [-0.1+ mV T WAVE IN V3-V6] Compared to ECG 10/16/2019 14:36:29 No significant changes Electronically Signed On 10-17-2019 0:20:46 CDT by Rochelle Wilkerson M.D. [id number]
[2019-10-16] MEDS: sodium chloride 0.9% 1,000 ML 30 ML IV (18:17)
[2019-10-16] MEDS: lidocaine 2% viscous 15 ML, aluminum-mag hydrox-simethicon 30 ML, sucralfate oral liq 1 GM PO (18:17)
[2019-10-16 18:37] LABS: Glucose Point of Care 205 mg/dL (70-110)
--- NOTE | 2019-10-16 18:45 | ECG_ITS ---
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 Measurements Intervals [place] Rate: 70 P: 44 NE: 168 QRS: 13 QRSD: 90 T: -19 QT: 414 QTc: 447 Interpretive Statements SINUS RHYTHM ST DEVIATION AND MODERATE T-WAVE ABNORMALITY, CONSIDER ANTEROLATERAL ISCHEMIA [-0.1+ mV T WAVE IN V3-V6] ST DEVIATION AND MODERATE T-WAVE ABNORMALITY, CONSIDER INFERIOR ISCHEMIA [-0.1+ mV T WAVE IN II/aVF] Compared to ECG 10/16/2019 17:52:35 No significant changes Electronically Signed On 10-17-2019 0:42:21 CDT by Rochelle Wilkerson M.D. [id number]
[2019-10-16 19:17] VITALS: BP 109/66; PULSE 70; RESP 14; O2SAT 97
--- NOTE | 2019-10-16 19:26 | PC.NURSE ---
Patient's BG is 113. Insulin drip stopped at this time.
[2019-10-16 19:27] LABS: Glucose Point of Care 113 mg/dL (70-110)
[2019-10-16 19:59] LABS: Troponin 5 6HR 10.63 ng/L (0-10); Troponin 5 6HR Delta 2.63 ng/L (0-12)
[2019-10-16 20:11] VITALS: BP 120/79; PULSE 73; RESP 16; O2SAT 100
== END 2019-10-16 20:12 | disposition short-term general hospital (02) ==
PROVIDERS: Emergency Provider Emergency Medicine; PCP Family Medicine
DX: R06.02 Shortness of breath (principal); R07.9 Chest pain, unspecified; E11.9 Type 2 diabetes mellitus without complications; E72.3 Disorders of lysine and hydroxylysine metabolism; I10 Essential (primary) hypertension
CPT/HCPCS: 12345; 36415; 36416; 36600; 71045; 80053; 81003; 82009; 82803; 82962; 83605; 83735; 83880; 84100; 84484; 85025; 85378; 93005; 96365; 96366; 96367; 96375; 99284; 99285; J1815; J3480; J7030; J7050

== ENCOUNTER 2020-01-11 09:08 | Outpatient (CLI) | payer MEDICARE, SELFPAY ==
--- NOTE | 2020-01-11 09:13 | MM_ITS ---
WS: [id number] BILATERAL DIGITAL SCREENING MAMMOGRAPHY WITH CAD CLINICAL INFORMATION: SCREENING HISTORY: Screening mammogram. No current complaints. COMPARISON: TECHNIQUE: Bilateral CC and MLO views. FINDINGS: The breasts are composed of heterogeneous fibroglandular density tissue, which can limit the detectio n of small underlying mass lesions. Stable dense parenchymal tissue upper outer left breast. No suspi cious mass, asymmetry, calcifications, or architectural distortion. No evidence of malignancy. Benign punctate calcifications. Vascular calcifications. MM/[place] [id number] IMPRESSION: BI-RADS: 2-Benign FOLLOW UP: 1 Year Follow-up Recommend return to annual screening mammography.
== END 2020-01-11 09:09 | disposition home or self-care (01) ==
LOC: RADSHAW 09:11
PROVIDERS: Visit Provider Nurse Practitioner Family
DX: Z12.31 Encounter for screening mammogram for malignant neoplasm of breast (principal)
CPT/HCPCS: 77067

== ENCOUNTER → 2020-04-26 09:35 | Outpatient (BNVA) | payer MEDICARE, SELFPAY | PROVIDERS: Visit Provider Obstetrics & Gynecology | DX: R30.9 Painful micturition, unspecified (principal) | CPT/HCPCS: 76830; 81000 ==

== ENCOUNTER 2020-11-12 09:53 | Outpatient (CLI) | payer MEDICARE, SELFPAY ==
--- NOTE | 2020-11-12 10:46 | MR_ITS ---
WS: [id number] MRI RIGHT KNEE NONCONTRAST TECHNIQUE: Axial PD, coronal PD fat sat, coronal PD, sagittal PD, and sagittal PD fat-sat images obta ined. CLINICAL INFORMATION: RIGHT KNEE INJURY COMPARISON: None. FINDINGS: Distal quadriceps and patella tendons are intact. Normal patella. High-grade tear of the ACL with no normal fibers visualized distally. Normal PCL. Blunting of the anterior horn lateral meniscus with complex meniscal tear. Chronic thinning of the me dial meniscus which appears intact. Normal femoral condyles and tibial plateau. Moderate chondromalac ia involving the medial and lateral joint compartments. Moderate chondromalacia patella. Normal LCL a nd MCL. Tiny suprapatellar effusion. Normal popliteal fossa. MR/MR knee RT wo con* [id number] IMPRESSION: 1. High-grade tear of the ACL with no normal fibers visualized distally. Billie l PCL. 2. Complex tear of the anterior horn lateral meniscus with blunting of the ant erior horn. 3. Advanced chondromalacia patella. Small suprapatellar effusion. 4. Normal LCL and MCL. 5. Grade III chondromalacia involving the medial and lateral joint compartmen ts. Outbridge grading:
== END 2020-11-12 09:54 | disposition home or self-care (01) ==
PROVIDERS: PCP Nurse Practitioner Family; Visit Provider Nurse Practitioner Family
DX: S89.91XD Unspecified injury of right lower leg, subsequent encounter (principal); M22.41 Chondromalacia patellae, right knee; S83.511D Sprain of anterior cruciate ligament of right knee, subsequent encounter; S83.271D Complex tear of lateral meniscus, current injury, right knee, subsequent encounter; X58.XXXD Exposure to other specified factors, subsequent encounter
CPT/HCPCS: 73721

== ENCOUNTER 2021-05-30 13:35 | Outpatient (CLI) | payer MEDICARE, SELFPAY ==
--- NOTE | 2021-05-30 13:44 | MM_ITS ---
WS: [id number] BILATERAL 3D TOMOSYNTHESIS DIGITAL SCREENING MAMMOGRAPHY WITH CAD CLINICAL INFORMATION: SCREENING HISTORY: Screening mammogram. No current complaints. COMPARISON: January 11, 2020 TECHNIQUE: Bilateral CC and MLO views. FINDINGS: The breasts are composed of heterogeneous fibroglandular density tissue, which can limit the detectio n of small underlying mass lesions. Punctate and lucent centered calcifications. No suspicious mass, asymmetry, calcifications, or architectural distortion. No evidence of malignancy. MM/[place] [id number] IMPRESSION: BI-RADS: 2-Benign FOLLOW UP: 1 Year Follow-up Recommend return to annual screening mammography.
== END 2021-05-30 13:36 | disposition home or self-care (01) ==
LOC: RAD 13:36
PROVIDERS: PCP Nurse Practitioner Family; Visit Provider Nurse Practitioner Family
DX: Z12.31 Encounter for screening mammogram for malignant neoplasm of breast (principal)
CPT/HCPCS: 77063; 77067

== ENCOUNTER 2021-12-02 13:13 | Outpatient (CLI) | payer MEDICARE, SELFPAY ==
--- NOTE | 2021-12-02 13:22 | XR_ITS ---
WS: [id number] SCREENING DEXA SCAN Shogether CLINICAL INFORMATION: POST MENOPAUSAL COMPARISON: None. FINDINGS: Left femoral neck bone mineral density measures 1.031 g/cm2. This corresponds to a T score of 0.2 and Z score of 0.4. Right femoral neck bone mineral density measures 1.017 g/cm2. This corresponds to a T score 0.1of and Z score of 0.3. Mean femoral neck bone mineral density measures 1.024 g/cm2. This corresponds to a T score of 0.1 and Z score of 0.4. XR/XR DEXA axial skeleton* [id number] IMPRESSION: Normal bone mineralization. Patient's FRAX calculated 10 year probability for major osteoporotic fracture i s 6.7 % and osteoporotic hip fracture is 0.4%.
== END 2021-12-02 13:14 | disposition home or self-care (01) ==
LOC: RAD 13:14
PROVIDERS: PCP Nurse Practitioner Family; Visit Provider Nurse Practitioner Family
DX: Z78.0 Asymptomatic menopausal state (principal)
CPT/HCPCS: 77080

== ENCOUNTER → 2021-12-24 08:01 | Outpatient (BNVA) | payer MEDICARE, SELFPAY | PROVIDERS: PCP Nurse Practitioner Family; Visit Provider Podiatrist Foot & Ankle Surgery | DX: E11.8 Type 2 diabetes mellitus with unspecified complications (principal); E11.42 Type 2 diabetes mellitus with diabetic polyneuropathy; L60.3 Nail dystrophy; Z79.84 Long term (current) use of oral hypoglycemic drugs; M21.41 Flat foot [pes planus] (acquired), right foot; M21.42 Flat foot [pes planus] (acquired), left foot | CPT/HCPCS: 99214 ==

== ENCOUNTER → 2022-01-30 08:09 | Outpatient (BNVA) | payer MEDICARE, SELFPAY | PROVIDERS: PCP Nurse Practitioner Family; Visit Provider Podiatrist Foot & Ankle Surgery | DX: E11.8 Type 2 diabetes mellitus with unspecified complications (principal); E11.42 Type 2 diabetes mellitus with diabetic polyneuropathy; L60.0 Ingrowing nail; L60.3 Nail dystrophy; M21.41 Flat foot [pes planus] (acquired), right foot; M21.42 Flat foot [pes planus] (acquired), left foot; Z79.84 Long term (current) use of oral hypoglycemic drugs | CPT/HCPCS: 11721 ==

== ENCOUNTER 2022-03-21 12:52 | Outpatient (CLI) | payer MEDICARE, SELFPAY ==
--- NOTE | 2022-03-21 13:09 | CT_ITS ---
WS: [id number] CT HEAD NONCONTRAST HISTORY: CHRONIC RIGHT SIDED HEADACHES TECHNIQUE: Contiguous axial imaging performed through the brain in 2.5 mm imaging. Bone and soft tiss ue windows. Sagittal and coronal reformats reviewed. All CT scans at [facility] use at least one of these dose optimization techniques: automated exposure control; mA and/or kV adjustment per pa tient size (includes targeted exams where dose is matched to clinical indication); or iterative recon struction. DLP: 1162.17 mGy.cm COMPARISON: None available. No acute intracranial hemorrhage, midline shift or mass effect. Mild atrophy and small vessel ischemic disease. Small lacunar infarct versus perivascular space along the inferior LEFT basal ganglia. Ventricles: Normal size with no hydrocephalus. No inferior displacement of the cerebellar tonsils. Paranasal sinuses: As visualized are clear. Mastoid air cells: Well pneumatized. Calvarium and scalp: Skull is intact with no soft tissue edema or swelling. CT/CT head wo con* [id number] IMPRESSION: 1. No acute intracranial hemorrhage or edema. 2. Mild cerebral atrophy and small vessel ischemic disease. 3. Small lacunar infarct versus prominent perivascular space along the inferio r LEFT basal ganglia.
== END 2022-03-21 12:53 | disposition home or self-care (01) ==
PROVIDERS: PCP Nurse Practitioner Family; Visit Provider Nurse Practitioner Family
DX: R51.9 Headache, unspecified (principal)
CPT/HCPCS: 70450

== ENCOUNTER 2022-03-24 11:16 | Outpatient (CLI) | payer MEDICARE, SELFPAY ==
--- NOTE | 2022-03-24 11:27 | USCV_ITS ---
Vivian Goff Age: 61 Gender: F : 1960 Exam Date: 03/24/2022 11:33 Ordering Phys: Lisette BergP IMPLEMENT MECHANIC Technologist: Exam Location: [facility] [place] Indication: chest pain short of breath BP: 125 / 73 HR: 63 Rhythm: Sinus Technical Quality: MEASUREMENTS (Male / Female) Normal Values 2D ECHO LV Diastolic Diameter PLAX 4.0 cm 4.2 - 5.9 / 3.9 - 5.3 cm LV Systolic Diameter PLAX 3.0 cm IVS Diastolic Thickness 1.3 cm 0.6 - 1.0 / 0.6 - 0.9 cm IVS Systolic Thickness 1.5 cm LVPW Diastolic Thickness 1.1 cm 0.6 - 1.0 / 0.6 - 0.9 cm LVPW Systolic Thickness 1.5 cm LVOT Diameter 2.0 cm LV Ejection Fraction 2D Teich 52.7 % LV Ejection Fraction MOD 2C 79.8 % LV Ejection Fraction 2C AL 79.8 % LA Diameter 4.3 cm Aorta at Sinotubular Diameter 3.0 cm IVC Diameter 1.4 cm M-MODE Aortic Annulus Diameter 3.2 cm LA Ao Ratio MM 1.5 DOPPLER AV Peak Velocity 129.0 cm/s LVOT Peak Velocity 84.0 cm/s AV Area Cont Eq vti 2.1 cm squared AV Area Cont Eq pk 2.1 cm squared MV Area PHT 5.0 cm squared Mitral E to A Ratio 1.0 MV E' Velocity 39.5 cm/s Mitral E to MV E' Ratio 9.3 Mitral E to LV E' Lateral Ratio 8.3 Mitral E to LV E' Septal Ratio 10.7 TR Peak Velocity 233.7 cm/s TR Peak Gradient 21.8 mmHg TV Peak E Velocity 98.0 cm/s Right Atrial Pressure 3.0 mmHg Pulmonary Artery Systolic Pressu 24.8 mmHg PV Peak Velocity 69.0 cm/s RV Acceleration Time 0.1 s FINDINGS Left Ventricle Left ventricle is normal in size. LV systolic function is normal with EF of 55 to 60%. No regional wall abnormalities are seen. Diastolic function is normal Right Ventricle Normal in size and function Right Atrium Normal in size Left Atrium Normal in size Mitral Valve Structurally normal mitral valve. No significant stenosis or regurgitation Aortic Valve Grossly normal Tricuspid Valve Mild tricuspid regurgitation. RVSP is normal. Pulmonic Valve Not well-visualized Pericardium Normal Aorta Not well-visualized IVC Appears to be normal CONCLUSIONS LV systolic function is normal with EF 55 to 60% Diastolic function is normal. Mild tricuspid regurgitation No comparison studies are available Jeremi Barajas MD (Electronically Signed) Final Date: 01 April 2022 17:33 S
== END 2022-03-24 11:17 | disposition home or self-care (01) ==
LOC: RAD 11:17
PROVIDERS: PCP Nurse Practitioner Family; Visit Provider Nurse Practitioner Family
DX: R00.2 Palpitations (principal); R07.9 Chest pain, unspecified; R06.02 Shortness of breath; I07.1 Rheumatic tricuspid insufficiency
CPT/HCPCS: 93306

== ENCOUNTER → 2022-04-10 10:22 | Outpatient (BNVA) | payer MEDICARE, SELFPAY | PROVIDERS: PCP Nurse Practitioner Family; Visit Provider Internal Medicine Cardiovascular Disease | DX: R00.2 Palpitations (principal); I12.9 Hypertensive chronic kidney disease with stage 1 through stage 4 chronic kidney disease, or unspecified chronic kidney disease; E11.22 Type 2 diabetes mellitus with diabetic chronic kidney disease; N18.9 Chronic kidney disease, unspecified; Z87.891 Personal history of nicotine dependence; Z79.84 Long term (current) use of oral hypoglycemic drugs; E78.5 Hyperlipidemia, unspecified; R53.1 Weakness; Z79.01 Long term (current) use of anticoagulants; R55 Syncope and collapse; Z79.82 Long term (current) use of aspirin | CPT/HCPCS: 36415; 80053; 83735; 84443; 85025; 93270; 99204 ==

== ENCOUNTER → 2022-04-17 10:23 | Outpatient (BNVA) | payer MEDICARE, SELFPAY | PROVIDERS: PCP Nurse Practitioner Family; Visit Provider Podiatrist Foot & Ankle Surgery | DX: E11.42 Type 2 diabetes mellitus with diabetic polyneuropathy (principal); E11.8 Type 2 diabetes mellitus with unspecified complications; L60.0 Ingrowing nail; L60.3 Nail dystrophy; M21.42 Flat foot [pes planus] (acquired), left foot; M21.41 Flat foot [pes planus] (acquired), right foot; Z79.84 Long term (current) use of oral hypoglycemic drugs | CPT/HCPCS: 11721 ==

== ENCOUNTER 2022-07-17 13:19 | Outpatient (CLI) | payer MEDICARE, SELFPAY | END 2022-07-17 13:20 | disposition home or self-care (01) | PROVIDERS: PCP Nurse Practitioner Family; Visit Provider Psychiatry & Neurology Neurology | DX: R51.9 Headache, unspecified (principal); M54.81 Occipital neuralgia; M54.2 Cervicalgia; E11.9 Type 2 diabetes mellitus without complications; Z79.84 Long term (current) use of oral hypoglycemic drugs; Z96.651 Presence of right artificial knee joint; Z98.890 Other specified postprocedural states; E11.8 Type 2 diabetes mellitus with unspecified complications; L60.0 Ingrowing nail; L60.3 Nail dystrophy; E11.42 Type 2 diabetes mellitus with diabetic polyneuropathy; M21.42 Flat foot [pes planus] (acquired), left foot; M21.41 Flat foot [pes planus] (acquired), right foot | CPT/HCPCS: 11721; 99203 ==

== ENCOUNTER → 2022-08-13 12:33 | Outpatient (BNVA) | payer MEDICARE, SELFPAY | PROVIDERS: PCP Nurse Practitioner Family; Visit Provider Psychiatry & Neurology Neurology | DX: M54.81 Occipital neuralgia (principal); M54.2 Cervicalgia; E11.9 Type 2 diabetes mellitus without complications; I10 Essential (primary) hypertension; Z96.651 Presence of right artificial knee joint; R41.3 Other amnesia; H53.9 Unspecified visual disturbance | CPT/HCPCS: 99212 ==

== ENCOUNTER 2022-09-11 09:52 | Outpatient (CLI) | payer MEDICARE, SELFPAY ==
--- NOTE | 2022-09-11 10:05 | MM_ITS ---
WS: [id number] BILATERAL SCREENING DIGITAL TOMOSYNTHESIS MAMMOGRAM WITH CAD HISTORY: SCREENING COMPARISON: 09/14/2017, 10/26/2018 and 05/30/2021 Bilateral CC and MLO views with tomosynthesis and synthetic mammography submitted. Computer aided det ection analyzed. Breast composition: There are scattered areas of fibroglandular density. No suspicious masses, microc alcifications or architectural distortion. Benign calcifications. Asymmetries are stable since 2018. MM/[place] [id number] IMPRESSION: BI-RADS: 2-Benign FOLLOW UP: 1 Year Follow-up
== END 2022-09-11 09:53 | disposition home or self-care (01) ==
LOC: RAD 09:59 → MOBLMAM 10:04
PROVIDERS: PCP Nurse Practitioner Family; Visit Provider Nurse Practitioner Family
DX: Z12.31 Encounter for screening mammogram for malignant neoplasm of breast (principal)
CPT/HCPCS: 77063; 77067

== ENCOUNTER → 2022-09-18 10:24 | Outpatient (BNVA) | payer MEDICARE, SELFPAY | PROVIDERS: PCP Nurse Practitioner Family; Visit Provider Podiatrist Foot & Ankle Surgery | DX: E11.42 Type 2 diabetes mellitus with diabetic polyneuropathy (principal); L60.3 Nail dystrophy; M21.40 Flat foot [pes planus] (acquired), unspecified foot; M21.41 Flat foot [pes planus] (acquired), right foot; M21.42 Flat foot [pes planus] (acquired), left foot | CPT/HCPCS: 11721 ==

== ENCOUNTER 2022-10-10 09:02 | Outpatient (CLI) | payer MEDICARE, SELFPAY ==
--- NOTE | 2022-10-10 09:30 | CT_ITS ---
WS: [id number] CTA HEAD TECHNIQUE: Contrast enhanced CTA of the head with coronal and sagittal reformatted images and maximum intensity projection (MIP) images. NASCET criteria utilized. CLINICAL INFORMATION: M54.81 - Occipital neuralgia COMPARISON: CT 04/10 DLP: 3397.[address] scans at [facility] use at least one of these dose optimization techniques: automated e xposure control; mA and/or kV adjustment per patient size (includes targeted exams where dose is matc hed to clinical indication); or iterative reconstruction. FINDINGS: Mild small vessel changes. Mild parenchymal volume loss. No extra-axial fluid collections. Mastoid air cells and paranasal sinuses are well aerated. Distal vertebral arteries are patent. Basilar artery is patent. Normal vascularity to the [place] territo cece bilaterally. Patent RIGHT posterior communicating artery. Both ICAs are patent at the skull base. Normal vascularity to the SEAN and MCA territories bilaterally . Patent anterior communicating artery. Small LEFT A1 segment. IMPRESSION: Normal intracranial CTA
[2022-10-10 09:44] LABS: Blood Urea Nitrogen 9 mg/dL (8-23); Glomerular Filtration Rate 72.4 mL/min (90-130)
== END 2022-10-10 09:03 | disposition home or self-care (01) ==
PROVIDERS: PCP Nurse Practitioner Family; Visit Provider Specialist
DX: M54.81 Occipital neuralgia (principal)
CPT/HCPCS: 70496; 82565; 84520; Q9967

== ENCOUNTER → 2022-10-29 15:11 | Outpatient (BNVA) | payer MEDICARE, SELFPAY | PROVIDERS: PCP Nurse Practitioner Family; Visit Provider Psychiatry & Neurology Neurology | DX: M54.81 Occipital neuralgia (principal) | CPT/HCPCS: 99212 ==

== ENCOUNTER → 2022-11-20 09:04 | Outpatient (BNVA) | payer MEDICARE, SELFPAY | PROVIDERS: PCP Nurse Practitioner Family; Visit Provider Podiatrist Foot & Ankle Surgery | DX: E11.42 Type 2 diabetes mellitus with diabetic polyneuropathy (principal); L60.3 Nail dystrophy; M72.2 Plantar fascial fibromatosis; M21.42 Flat foot [pes planus] (acquired), left foot; M21.41 Flat foot [pes planus] (acquired), right foot; Z46.89 Encounter for fitting and adjustment of other specified devices | CPT/HCPCS: 11721; 97760; 99213; L4397 ==

== ENCOUNTER 2022-11-20 12:10 | Outpatient (CLI) | payer MEDICARE, SELFPAY | END 2022-11-20 12:11 | disposition home or self-care (01) | LOC: SPT 12:11 | PROVIDERS: PCP Nurse Practitioner Family; Visit Provider Podiatrist Foot & Ankle Surgery | DX: Z46.89 Encounter for fitting and adjustment of other specified devices (principal); M72.2 Plantar fascial fibromatosis | CPT/HCPCS: 97760; L4397 ==

== ENCOUNTER → 2023-01-28 09:00 | Outpatient (BNVA) | payer MEDICARE, SELFPAY | PROVIDERS: PCP Nurse Practitioner Family; Visit Provider Podiatrist Foot & Ankle Surgery | DX: M72.2 Plantar fascial fibromatosis (principal); E11.42 Type 2 diabetes mellitus with diabetic polyneuropathy; L60.3 Nail dystrophy; M21.41 Flat foot [pes planus] (acquired), right foot; M21.42 Flat foot [pes planus] (acquired), left foot | CPT/HCPCS: 11721; 20550; J1100; J3301; J3490 ==

== ENCOUNTER 2023-01-28 18:22 | Emergency (ER) | payer MEDICARE, SELFPAY ==
[2023-01-28 18:34] VITALS: BP 134/88; PULSE 85; RESP 16; TEMP 36.5; O2SAT 96; BMI 38.4
[2023-01-28 18:45] LABS: Glucose Point of Care 289 mg/dL (70-110)
--- NOTE | 2023-01-28 18:45 | ED_ITS ---
HPI - General Adult 2 General: Chief complaint: General Medical Stated complaint: high blood sugar,headache Time Seen by Provider: 01/28/23 18:33 Source: patient Mode of arrival: ambulatory Limitations: no limitations History of Present Illness: 62-year-old female with history of diabe olya she states that she is previously on metformin stopped that she has been taking semaglutide states she had ran out but she is taking it again and she tells me she takes 3 mg twice a day she is concerned because she states her blood sugar has been up and down she said it was 320 at home today is 289 here had a mild headache denies any other complaints no vomiting no diarrhea Associated symptoms: Reports headache(s); Deny chest pain, dyspnea, nausea, rash or vomiting Review of Systems 2 Const: Denies: fever(s) or chills ENMT: Denies: throat pain or dental pain Card: Denies: chest pain Resp: Denies: dyspnea GI: Denies: abdominal pain, nausea, vomiting or diarrhea : Denies: dysuria Musc: Denies: neck pain or back pain Skin/Breast: Denies: rash Neuro: Reports: headache(s) PFSH ED 2 PFSH: Medical History Diabetes Hyperlipidemia Hypertension Surgical History Status post laparoscopic cholecystectomy (05/22/19) History of back surgery History of delivery Social History Smoking and tobacco/nicotine status: former use of tobacco/nicotine Alcohol intake: former Substance/Drug Use: never Physical Exam 2 Const: COMMON NORMALS: no acute distress, patient oriented x3 and healthy appearing HENMT: COMMON NORMALS: normocephalic and atraumatic HEAD & SCALP: n ormocephalic and atraumatic Eye: COMMON NORMALS: Equal, round and reactive pupils present and EOMs intact bilaterally PUPIL: Yes Equal, round and reactive pupils present Neck/C-Spine: COMMON NORMALS: full ROM and supple Chest: COMMONS NORMALS: normal inspection of the chest and normal palpation of entire chest wall Resp: COMMON NORMALS: normal respiratory effort, No retractions, No use of accessory muscles and clear to auscultation bilaterally AUSCULTATION: clear to auscultation bilaterally Cardio: COMMON NORMALS: regular rate, regular rhythm and No murmurs present (Cardio) RATE: regular rate RHYTHM: regular rhythm GI: COMMON NORMALS: Normal to inspection, nondistended, normoactive bowel sounds present, Soft to palpation, non-tender and no masses PALPATION: Yes Soft to palpation Extremity: COMMON NORMALS: normal to inspection and full ROM Neuro: COMMON NORMALS: patient oriented x3, moves all extremities and no focal motor deficits Psych: COMMON NORMALS: mental status grossly normal, Normal thought process present and cooperative THOUGHT PROCESS: Normal thought process present Skin: COMMON NORMALS: no rashes or lesions noted and no wounds GENERAL SKIN EXAM: no rashes or lesions noted Course 2 Vital Signs: Vital signs: Vital Signs Temperature 97.7 F 01/28/23 18:34 Pulse Rate 85 01/28/23 18:34 Respiratory Rate 15 01/28/23 19:26 Blood Pressure 128/86 01/28/23 19:26 Pulse Oximetry 97 01/28/23 19:26 Oxygen Delivery Me thod Room Air 01/28/23 19:26 MDM - General Adult Medical Decision Making Patient presents here with hyperglycemia is much improved here blood work is otherwise normal she is to continue her meds and follow-up with PCP and return if worsening she understands agrees to plan. Medical Records I reviewed the patient's medical records. Lab Data I reviewed the patient's lab results. 01/28/23 19:21 01/28/23 19:21 Laboratory Results WBC 10.42 10^3/uL (3.29-11.43) 01/28/23 19:21 RBC 4.67 10^6/uL (3.85-5.65) 01/28/23 19:21 Hgb 13.50 g/dL (11.27-16.99) 01/28/23 19:21 Hct 40.2 % (36-47) 01/28/23 19:21 MCV 86.1 fl (85-98) 01/28/23 19:21 MCH 28.9 pg (27-33) 01/28/23 19:21 MCHC 33.6 g/dL (30-55) 01/28/23 19:21 RDW 14.3 % (12.1-15.1) 01/28/23 19:21 Plt Count 276 10^3/cmm (157-399) 01/28/23 19:21 MPV 8.8 fL (7.4-10.4) 01/28/23 19:21 Neut % (Auto) 79.8 % 01/28/23 19:21 Lymph % (Auto) 17.2 % 01/28/23 19:21 [place] % (Auto) 1.8 % 01/28/23 19:21 Eos % (Auto) 0.0 % 01/28/23 19:21 Baso % (Auto) 0.2 % 01/28/23 19:21 Neut # (Auto) 8.32 10^3/uL (1.8-7.7) H 01/28/23 19:21 Lymph # (Auto) 1.8 10^3/uL (0.8-4.8) 01/28/23 19:21 [place] # (Auto) 0.2 10^3/uL (0.2-0.9) 01/28/23 19:21 Eos # (Auto) 0.0 10^3/uL (0.0-0.8) 01/28/23 19:21 Baso # (Auto) 0.0 10^3/uL (0.0-0.1) 01/28/23 19:21 Nucleated RBC % (auto) 0 % 01/28/23 19: Nucleated RBCs # 0.0 /100WBC 01/28/23 19:21 Sodium 134 mmol/L (136-145) L 01/28/23 19:21 Potassium 3.9 mmol/L (3.5-5.1) 01/28/23 19:21 Chloride 99 mmol/L (98-107) 01/28/23 19:21 Carbon Dioxide 21 mmol/L (22-29) L 01/28/23 19:21 Anion Gap 17.9 (5-19) 01/28/23 19:21 BUN 12 mg/dL (8-23) 01/28/23 19:21 Creatinine 0.6 mg/dL (0.5-0.9) 01/28/23 19:21 GFR Calculation 101.0 mL/min (90-130) 01/28/23 19:21 Glucose 278 mg/dL (65-115) H 01/28/23 19:21 POC Glucose 213 mg/dL (70-110) H 01/28/23 20:01 Calculated Osmolality 288 mOsm/kg (285-295) 01/28/23 19:21 Calcium 10.0 mg/dL (8.5-10.5) 01/28/23 19:21 Total Bilirubin 0.3 mg/dL (0.15-1.2) 01/28/23 19:21 AST 27 U/L (0-32) 01/28/23 19:21 ALT 38 U/L (0-33) H 01/28/23 19:21 Alkaline Phosphatase 102 U/L (35-105) 01/28/23 19:21 Total Protein 7.3 g/dL (6.6-8.7) 01/28/23 19:21 Albumin 4.1 g/dL (3.5-5.2) 01/28/23 19:21 Globulin 3.2 g/dL (1.3-4.6) 01/28/23 19:21 No radiology studies performed this visit Discharge Plan Discharge Patient Disposition: Home Clinical Impression: Hyperglycemia Condition: Stable Prescriptions: No Action clobetasol 0.05 % cream 1 applic topical BID 14 Days Qty: 45 0RF Rx Instructions: use twice daily for two weeks then twice a week after that. estradiol [Estrace] 0.01 % (0.1 mg/gram) cream 0.25 g vaginal DAILY 14 Days Qty: 42.5 0RF Rx Instructions: for 14 days, then twice weekly after that. (DME) night splint See Rx Instructions .Route .MEDSUPPLY Qty: 1 0RF Rx Instructions: As directed magnesium L-lactate [Magtab] 84 mg tablet extended release 84 mg PO DAILY Qty: 90 3RF diazepam [Valium] 5 mg tablet 5 mg PO BID PRN (Reason: anxiety) Qty: 4 0RF Rx Instructions: take 2 on 07/22 one 30 min before apt and one when you arrive then two on 08/[address] hydrochlorothiazide 12.5 mg tablet See Rx Instructions .ROUTE .COMPLEX Qty: 90 2RF Dose Instruction: TAKE 1 TABLET BY MOUTH EVERY DAY Rx Instructions: TAKE 1 TABLET BY MOUTH EVERY DAY potassium chloride 10 mEq tablet extended release 10 meq PO DAILY Qty: 90 3RF metoprolol tartrate 50 mg tablet See Rx Instructions .ROUTE .COMPLEX Qty: 180 3RF Dose Instruction: TAKE 1 TABLET BY MOUTH TWICE A DAY Rx Instructions: TAKE 1 TABLET BY MOUTH TWICE A DAY atorvastatin 10 mg tablet 10 mg PO BEDTIME Aspir-81 81 mg Tablet,Delayed Release (Dr/Ec) 81 mg PO DAILY Euthyrox 50 mcg tablet 50 mcg PO QAM Adult Multivitamin Gummies 200 mcg Tablet,Chewable 400 mcg PO DAILY Fish Oil 1 cap PO DAILY Otc Gummies To Go With Fish Oi 1 tab PO DAILY Rx Instructions: PT STATES SHE TAKES SOME KIND OF GUMMIE WITH HER FISH OIL BUT CANT REMEMBER THE NAME OF IT Discharge Orders: Discharge ED (Routine); Ordered 01/28/23 Ordered By: Den Galarza Referrals: Lisette Berg FNP [Primary Care Provider] - 1-3 days Discharge Diet: Advance as tolerated Discharge Activity: Resume usual activity Patient Instructions: Diabetic Hyperglycemia (ED) Coding Level of Care Code ED It Applications Analyst for Miguel Gutierrez
[2023-01-28 19:26] VITALS: BP 128/86; RESP 15; O2SAT 97
[2023-01-28] MEDS: sodium chloride 0.9% 1,000 ML 999 ML IV (19:27)
[2023-01-28 19:28] LABS: Basophils % 0.2 %; Hematocrit 40.2 % (36-47); Lymphocytes # 1.8 10^3/uL (0.8-4.8); Lymphocytes % 17.2 %; Mean Corpuscular HGB Conc 33.6 g/dL (30-55); Mean Corpuscular Hemoglobin 28.9 pg (27-33); Mean Corpuscular Volume 86.1 fl (85-98); Mean Platelet Volume 8.8 fL (7.4-10.4); Monocytes # 0.2 10^3/uL (0.2-0.9); Monocytes % 1.8 %; Neutrophils # 8.32 10^3/uL (1.8-7.7); Neutrophils % 79.8 %; Nucleated Red Blood Cells % 0 %; Platelet Count 276 10^3/cmm (157-399); Red Blood Count 4.67 10^6/uL (3.85-5.65); Red Cell Distribution Width 14.3 % (12.1-15.1); White Blood Count 10.42 10^3/uL (3.29-11.43)
[2023-01-28 19:51] LABS: Alanine Aminotransferase 38 U/L (0-33); Albumin Level 4.1 g/dL (3.5-5.2); Alkaline Phosphatase 102 U/L (35-105); Anion Gap 17.9 (5-19); Aspartate Amino Transferase 27 U/L (0-32); Blood Urea Nitrogen 12 mg/dL (8-23); Carbon Dioxide 21 mmol/L (22-29); Chloride 99 mmol/L (98-107); Globulin 3.2 g/dL (1.3-4.6); Glucose 278 mg/dL (65-115); Osmolality Calculated 288 mOsm/kg (285-295); Potassium 3.9 mmol/L (3.5-5.1); Sodium 134 mmol/L (136-145); Total Bilirubin 0.3 mg/dL (0.15-1.2); Total Protein 7.3 g/dL (6.6-8.7)
[2023-01-28 20:04] LABS: Glucose Point of Care 213 mg/dL (70-110)
--- NOTE | 2023-01-28 20:04 | PC.NURSE ---
pt POC glucose 213, ED physician notified, no further orders at this time.
== END 2023-01-28 20:47 | disposition home or self-care (01) ==
PROVIDERS: Emergency Provider Emergency Medicine; PCP Nurse Practitioner Family
DX: E11.65 Type 2 diabetes mellitus with hyperglycemia (principal); Z79.82 Long term (current) use of aspirin; E78.5 Hyperlipidemia, unspecified; I10 Essential (primary) hypertension; Z87.891 Personal history of nicotine dependence
CPT/HCPCS: 11721; 20550; 36415; 36416; 80053; 82962; 85025; 99283; J1100; J3301; J3490; J7030

== ENCOUNTER 2023-03-15 18:39 | Emergency (ER) | payer MEDICARE, SELFPAY ==
[2023-03-15 18:41] VITALS: BP 114/71; PULSE 82; TEMP 36.9; O2SAT 95; BMI 46.0
[2023-03-15 19:14] LABS: Basophils % 0.3 %; Eosinophils # 0.1 10^3/uL (0.0-0.8); Eosinophils % 1.1 %; Hematocrit 41.6 % (36-47); Lymphocytes # 3.7 10^3/uL (0.8-4.8); Lymphocytes % 40.7 %; Mean Corpuscular HGB Conc 33.9 g/dL (30-55); Mean Corpuscular Hemoglobin 28.7 pg (27-33); Mean Corpuscular Volume 84.7 fl (85-98); Mean Platelet Volume 8.4 fL (7.4-10.4); Monocytes # 0.5 10^3/uL (0.2-0.9); Monocytes % 5.5 %; Neutrophils # 4.67 10^3/uL (1.8-7.7); Nucleated Red Blood Cells % 0 %; Platelet Count 316 10^3/cmm (157-399); Red Blood Count 4.91 10^6/uL (3.85-5.65); Red Cell Distribution Width 13.6 % (12.1-15.1); White Blood Count 9.01 10^3/uL (3.29-11.43)
--- NOTE | 2023-03-15 19:14 | ED_ITS ---
HPI - Recheck/Abnormal Lab/Rx 2 General: Chief Complaint: Recheck/Abnormal Lab/Rx Stated Complaint: HYPERGLYCEMIA Time Seen by Provider: 03/15/23 18:58 History of Present Illness: 62-year-old female comes in today for co ncerns of elevated blood glucose. Patient had recently had a urinary tract infection and completed her antibiotics today. Patient had called EMS for concerns relating to elevated glucose. EMS had checked her sugar and noted this over 400 and brought patient to the emergency room for evaluation and treatment. Patient appears nontoxic. Patient appears in no pain. Patient has a history of diabetes mellitus, subclinical hypothyroidism, and hypertension. Review of Systems 2 General: Reports: 10 or more systems reviewed and unremarkable except in HPI and below PFSH ED 2 PFSH: Medical History Diabetes Hyperlipidemia Hypertension Surgical History Status post laparoscopic cholecystectomy (05/22/19) History of back surgery History of delivery Social History Smoking and tobacco/nicotine status: former use of tobacco/nicotine Alcohol intake: former Substance/Drug Use: never Physical Exam 2 Const: COMMON NORMALS: alert HENMT: COMMON NORMALS: normocephalic HEAD & SCALP: normocephalic Neck/C-Spine: COMMON NORMALS: full ROM Resp: COMMON NORMALS: normal respiratory effort and clear to auscultation bilaterally AUSCULTATION: clear to auscultation bilaterally Cardio: COMMON NORMALS: regular rate and regular rhythm RATE: regular rate RHYTHM: regular rhythm GI: COMMON NORMALS: Soft to palpation and non-tender PALPATION: Yes Soft to palpation Back/Pelvis: COMMON NORMALS: thoracic and lumbar spine normal to inspection Extremity: COMMON NORMALS: normal to inspection Neuro: SENSORIUM/ORIENTATION: Yes alert Skin: COMMON NORMALS: turgor normal GENERAL SKIN EXAM: turgor normal Course 2 Vital Signs: Vital signs: Vital Signs Temperature 98.4 F 03/15/23 18:41 Pulse Rate 87 03/15/23 20:46 Blood Pressure 102/82 03/15/23 20:46 Pulse Oximetry 95 03/15/23 20:46 Oxygen Delivery Me thod Room Air 03/15/23 20:46 MDM - Recheck/Abnormal Lab/Rx Medical Decision Making 62-year-old female comes in today for complaints of elevated glucose. Patient is diabetic and had elevated glucose above 400. Patient was brought in by EMS for these concerns. Patient appears nontoxic. Patient appears in no acute distress. Differential diagnosis includes but not limited to dehydration, hyperglycemia, anxiety about health. Urinalysis was clear. CBC and CMP were normal except for some elevation in blood glucose of 341. ABG was unremarkable. Patient was treated with 1 L of IV fluids, and 10 units of IV insulin. Blood glucose came down to 90 and patient was fed and monitoring her blood glucose came back to 160. Patient was recommended to continue with routine care and follow-up with primary care for further instructions. Patient reported understanding agreed to plan. Lab Data 03/15/23 19:08 03/15/23 19:08 Laboratory Results WBC 9.01 10^3/uL (3.29-11.43) 03/15/23 19:08 RBC 4.91 10^6/uL (3.85-5.65) 03/15/23 19:08 Hgb 14.10 g/dL (11.27-16.99) 03/15/23 19:08 Hct 41.6 % (36-47) 03/15/23 19:08 MCV 84.7 fl (85-98) L 03/15/23 19:08 MCH 28.7 pg (27-33) 03/15/23 19:08 MCHC 33.9 g/dL (30-55) 03/15/23 19:08 RDW 13.6 % (12.1-15.1) 03/15/23 19:08 Plt Count 316 10^3/cmm (157-399) 03/15/23 19:08 MPV 8.4 fL (7.4-10.4) 03/15/23 19:08 Neut % (Auto) 52.0 % 03/15/23 19:08 Lymph % (Auto) 40.7 % 03/15/23 19:08 [place] % (Auto) 5.5 % 03/15/23 19:08 Eos % (Auto) 1.1 % 03/15/23 19:08 Baso % (Auto) 0.3 % 03/15/23 19:08 Neut # (Auto) 4.67 10^3/uL (1.8-7.7) 03/15/23 19:08 Lymph # (Auto) 3.7 10^3/uL (0.8-4.8) 03/15/23 19:08 [place] # (Auto) 0.5 10^3/uL (0.2-0.9) 03/15/23 19:08 Eos # (Auto) 0.1 10^3/uL (0.0-0.8) 03/15/23 19:08 Baso # (Auto) 0.0 10^3/uL (0.0-0.1) 03/15/23 19:08 Nucleated RBC % (auto) 0 % 03/15/23 19:08 Nucleated RBCs # 0.0 /100WBC 03/15/23 19:08 Specimen Type Arterial 03/15/23 19:17 Sample Site Radial, right 03/15/23 19:17 ABG pH 7.37 (7.35-7.45) 03/15/23 19:17 ABG pCO2 31.9 mmHg (35-45) L 03/15/23 19:17 ABG pO2 76.2 mmHg (80.0-100.0) L 03/15/23 19:17 ABG PO2/FiO2 Ratio 0 03/15/23 19:17 ABG HCO3 18.3 mmol/L (22-26) L 03/15/23 19:17 ABG Base Excess -6.0 mmol/L (-2.0-2.0) L 03/15/23 19:17 Lazaro Test Pos 03/15/23 19:17 Hematocrit 41.3 % (37-47) 03/15/23 19:17 O2 Delivery Device Room air 03/15/23 19:17 FiO2 21.0 % 03/15/23 19:17 Garment Worker ID Ed 03/15/23 19:17 Sodium 137 mmol/L (136-145) 03/15/23 19:08 Potassium 3.6 mmol/L (3.5-5.1) 03/15/23 19:08 Chloride 99 mmol/L (98-107) 03/15/23 19:08 Carbon Dioxide 22 mmol/L (22-29) 03/15/23 19:08 Anion Gap 19.6 (5-19) H 03/15/23 19:08 BUN 13 mg/dL (8-23) 03/15/23 19:08 Creatinine 0.6 mg/dL (0.5-0.9) 03/15/23 19:08 GFR Calculation 101.0 mL/min (90-130) 03/15/23 19:08 Glucose 341 mg/dL (65-115) H 03/15/23 19:08 POC Glucose 151 mg/dL (70-110) H 03/15/23 22:03 Calculated Osmolality 298 mOsm/kg (285-295) H 03/15/23 19:08 Calcium 9.4 mg/dL (8.5-10.5) 03/15/23 19:08 Total Bilirubin 0.2 mg/dL (0.15-1.2) 03/15/23 19:08 AST 26 U/L (0-32) 03/15/23 19:08 ALT 40 U/L (0-33) H 03/15/23 19:08 Alkaline Phosphatase 132 U/L (35-105) H 03/15/23 19:08 Total Protein 7.7 g/dL (6.6-8.7) 03/15/23 19:08 Albumin 4.1 g/dL (3.5-5.2) 03/15/23 19:08 Globulin 3.6 g/dL (1.3-4.6) 03/15/23 19:08 Urine Color Colorless (Yellow) 03/15/23 20: Urine Appearance Clear (CLEAR) 03/15/23 20: Urine pH 7 (5-7) 03/15/23 20:29 Ur Specific [place] 1.000 (1.005-1.030) L 03/15/23 20: Urine Protein Neg (Negative) 03/15/23 20: Urine Glucose (UA) 4+ (Normal) H 03/15/23 20: Urine Ketones 1+ (Negative) H 03/15/23 20: Urine Blood Trace (Negative) H 03/15/23 20: Urine Nitrate Negative (Negative) 03/15/23 20: Urine Bilirubin Neg (Negative) 03/15/23 20: Urine Urobilinogen Norm mg/dL (Negative) 03/15/23 20: Ur Leukocyte Esterase Negative (Negative) 03/15/23 20:29 Urine RBC 0-4 /hpf (0-2) H 03/15/23 20:29 Urine WBC 0-4 /hpf (0-5) H 03/15/23 20:29 Ur Squamous Epith Cells 0-4 /hpf (0-5) H 03/15/23 20:29 Amorphous Sediment Not Reportable 03/15/23 20:29 Urine Bacteria Trace /hpf (NONE) 03/15/23 20:29 Serum Ketones Negative (Negative) 03/15/23 19:08 No radiology studies performed this visit Discharge Plan Discharge Patient Disposition: Home Clinical Impression: Hyperglycemia due to type 2 diabetes mellitus 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 estradiol [Estrace] 0.01 % (0.1 mg/gram) cream 0.25 g vaginal DAILY 14 Days Qty: 42.5 0RF Rx Instructions: for 14 days, then twice weekly after that. (DME) night splint See Rx Instructions .Route .MEDSUPPLY Qty: 1 0RF Rx Instructions: As directed magnesium L-lactate [Magtab] 84 mg tablet extended release 84 mg PO DAILY Qty: 90 3RF diazepam [Valium] 5 mg tablet 5 mg PO BID PRN (Reason: anxiety) Qty: 4 0RF Rx Instructions: take 2 on 07/22 one 30 min before apt and one when you arrive then two on 08/[address] hydrochlorothiazide 12.5 mg tablet See Rx Instructions .ROUTE .COMPLEX Qty: 90 2RF Dose Instruction: TAKE 1 TABLET BY MOUTH EVERY DAY Rx Instructions: TAKE 1 TABLET BY MOUTH EVERY DAY potassium chloride 10 mEq tablet extended release 10 meq PO DAILY Qty: 90 3RF metoprolol tartrate 50 mg tablet See Rx Instructions .ROUTE .COMPLEX Qty: 180 3RF Dose Instruction: TAKE 1 TABLET BY MOUTH TWICE A DAY Rx Instructions: TAKE 1 TABLET BY MOUTH TWICE A DAY atorvastatin 10 mg tablet 10 mg PO BEDTIME Aspir-81 81 mg Tablet,Delayed Release (Dr/Ec) 81 mg PO DAILY Euthyrox 50 mcg tablet 50 mcg PO QAM Adult Multivitamin Gummies 200 mcg Tablet,Chewable 400 mcg PO DAILY Fish Oil 1 cap PO DAILY Otc Gummies To Go With Fish Oi 1 tab PO DAILY Rx Instructions: PT STATES SHE TAKES SOME KIND OF GUMMIE WITH HER FISH OIL BUT CANT REMEMBER THE NAME OF IT Discharge Orders: Discharge ED (Routine); Ordered 03/15/23 Ordered By: Viktor Mcnally Referrals: Lisette Berg FNP [Primary Care Provider] - Discharge Diet: Usual diet Discharge Activity: Increase activity as tolerated Patient Instructions: Type 2 Diabetes in the Older Adult (ED) Activity Restrictions/Additional Instructions: Continue with routine medications and treatment. Follow-up with primary care tomorrow for recheck. Return to ED for new concerns. Coding Level of Care Code ED Instructional Developer for Miguel Gutierrez
[2023-03-15 19:23] LABS: Ketone (Acetest) Serum Negative (Negative)
[2023-03-15 19:26] LABS: ABG PCO2 31.9 mmHg (35-45); ABG PH Result 7.37 (7.35-7.45); Arterial Blood Gas Hematocrit 41.3 % (37-47); Blood Gas Allen Test Pos; Blood Gas Sample Type Arterial; HCO3 ABG 18.3 mmol/L (22-26); PO2 ABG 76.2 mmHg (80.0-100.0)
[2023-03-15 19:28] LABS: Blood Gas Operator Identificat ED; Blood Gas Sample Site Radial, right; Oxygen Device ROOM AIR; PO2 FiO2 Ratio Arterial Blood 0
[2023-03-15 19:35] LABS: Alanine Aminotransferase 40 U/L (0-33); Albumin Level 4.1 g/dL (3.5-5.2); Alkaline Phosphatase 132 U/L (35-105); Anion Gap 19.6 (5-19); Aspartate Amino Transferase 26 U/L (0-32); Blood Urea Nitrogen 13 mg/dL (8-23); Calcium 9.4 mg/dL (8.5-10.5); Carbon Dioxide 22 mmol/L (22-29); Chloride 99 mmol/L (98-107); Globulin 3.6 g/dL (1.3-4.6); Glucose 341 mg/dL (65-115); Osmolality Calculated 298 mOsm/kg (285-295); Potassium 3.6 mmol/L (3.5-5.1); Sodium 137 mmol/L (136-145); Total Bilirubin 0.2 mg/dL (0.15-1.2); Total Protein 7.7 g/dL (6.6-8.7)
[2023-03-15] MEDS: sodium chloride 0.9% 1,000 ML 999 ML IV (19:43)
[2023-03-15] MEDS: insulin regular-human 100 units/1 mL 10 UNIT IVP (19:44)
[2023-03-15 20:26] LABS: Glucose Point of Care 169 mg/dL (70-110)
[2023-03-15 20:46] VITALS: BP 102/82; PULSE 87; O2SAT 95
[2023-03-15 20:48] LABS: Urine Appearance Clear (CLEAR); Urine Color Colorless (Yellow); pH Urine 7 (5-7)
[2023-03-15 20:49] LABS: Add Urine Microscopic? YES; Bilirubin Urine Neg (Negative); Blood Urine Trace (Negative); Glucose Urine UA 4+ (Normal); Ketones Urine 1+ (Negative); Leukocyte Esterase Urine Negative (Negative); Nitrate Urine Negative (Negative); Protein Urine Neg (Negative); Urobilinogen Urine Norm (Negative)
[2023-03-15 20:50] LABS: Bacteria Urine TRACE /hpf; RBC Urine 0-4 /hpf (0-2); Squamous Epithelial Cell Urine 0-4 /hpf (0-5); WBC Urine 0-4 /hpf (0-5)
[2023-03-15 21:04] LABS: Glucose Point of Care 90 mg/dL (70-110)
[2023-03-15 22:06] LABS: Glucose Point of Care 151 mg/dL (70-110)
[2023-03-15 22:26] VITALS: BP 123/101; PULSE 94; RESP 16; TEMP 36.9; O2SAT 92
== END 2023-03-15 22:27 | disposition home or self-care (01) ==
PROVIDERS: Emergency Provider Nurse Practitioner Family; PCP Nurse Practitioner Family
DX: E11.65 Type 2 diabetes mellitus with hyperglycemia (principal); Z79.82 Long term (current) use of aspirin; E78.5 Hyperlipidemia, unspecified; I10 Essential (primary) hypertension; Z87.891 Personal history of nicotine dependence
CPT/HCPCS: 36415; 36416; 36600; 80053; 81001; 82009; 82803; 82962; 85025; 96361; 96374; 99284; J1815; J7030

== ENCOUNTER → 2023-04-29 09:24 | Outpatient (BNVA) | payer MEDICARE, SELFPAY | PROVIDERS: PCP Nurse Practitioner Family; Visit Provider Podiatrist Foot & Ankle Surgery | DX: E11.42 Type 2 diabetes mellitus with diabetic polyneuropathy (principal); L60.3 Nail dystrophy; M21.41 Flat foot [pes planus] (acquired), right foot; M21.42 Flat foot [pes planus] (acquired), left foot; M72.2 Plantar fascial fibromatosis | CPT/HCPCS: 11721 ==

== ENCOUNTER → 2023-07-22 11:24 | Outpatient (BNVA) | payer MEDICARE, SELFPAY | PROVIDERS: PCP Nurse Practitioner Family; Visit Provider Podiatrist Foot & Ankle Surgery | DX: E11.42 Type 2 diabetes mellitus with diabetic polyneuropathy (principal); L60.3 Nail dystrophy; M79.671 Pain in right foot | CPT/HCPCS: 11721 ==

== ENCOUNTER → 2023-09-30 10:17 | Outpatient (BNVA) | payer MEDICARE, SELFPAY | PROVIDERS: PCP Nurse Practitioner Family; Visit Provider Podiatrist Foot & Ankle Surgery | DX: E11.42 Type 2 diabetes mellitus with diabetic polyneuropathy (principal); L60.3 Nail dystrophy; I73.9 Peripheral vascular disease, unspecified | CPT/HCPCS: 11721; 99212 ==

== ENCOUNTER 2023-11-23 11:29 | Emergency (ER) | payer MEDICARE, SELFPAY ==
[2023-11-23 11:36] VITALS: BP 150/90; PULSE 108; RESP 18; TEMP 36.5; O2SAT 99; BMI 36.8
[2023-11-23 13:11] LABS: Basophils % 0.4 %; Eosinophils # 0.1 10^3/uL (0.0-0.8); Hematocrit 45.4 % (36-47); Mean Corpuscular HGB Conc 33.3 g/dL (30-55); Mean Corpuscular Hemoglobin 28.5 pg (27-33); Mean Corpuscular Volume 85.8 fl (85-98); Mean Platelet Volume 8.6 fL (7.4-10.4); Monocytes # 0.7 10^3/uL (0.2-0.9); Neutrophils # 5.52 10^3/uL (1.8-7.7); Neutrophils % 48.2 %; Nucleated Red Blood Cells % 0 %; Platelet Count 287 10^3/cmm (157-399); Red Blood Count 5.29 10^6/uL (3.85-5.65); White Blood Count 11.41 10^3/uL (3.29-11.43)
[2023-11-23 13:11] LABS: Glucose Point of Care 96 mg/dL (70-110)
[2023-11-23 13:24] LABS: INR 1.01 (0.8-1.2)
[2023-11-23 13:25] LABS: Partial Thromboplastin Time 25.7 SECONDS (23.9-36.7)
[2023-11-23 13:33] LABS: Alanine Aminotransferase 40 U/L (0-33); Albumin Level 4.4 g/dL (3.5-5.2); Alkaline Phosphatase 105 U/L (35-105); Anion Gap 13.8 (5-19); Aspartate Amino Transferase 24 U/L (0-32); Blood Urea Nitrogen 14 mg/dL (8-23); Calcium 9.6 mg/dL (8.5-10.5); Carbon Dioxide 26 mmol/L (22-29); Chloride 100 mmol/L (98-107); Creatinine Clr Calc Pharmacy 103.4479; Globulin 3.8 g/dL (1.3-4.6); Glomerular Filtration Rate 100.6 mL/min (90-130); Glucose 104 mg/dL (65-115); Lipase 37 U/L (13-60); Osmolality Calculated 283 mOsm/kg (285-295); Potassium 3.8 mmol/L (3.5-5.1); Sodium 136 mmol/L (136-145); Total Bilirubin 0.4 mg/dL (0.15-1.2); Total Protein 8.2 g/dL (6.6-8.7)
--- NOTE | 2023-11-23 14:25 | CTR_ITS ---
PROCEDURE INFORMATION: Exam: CT Abdomen And Pelvis With Contrast Exam date and time: 11/23/2023 4:43 PM Age: 63 years old Clinical indication: Abdominal pain; Prior surgery; Surgery date: 6+ months; Surgery type: Gb TECHNIQUE: Imaging protocol: Computed tomography of the abdomen and pelvis with contrast. Radiation optimization: All CT scans at this facility use at least one of these dose optimization techniques: automated exposure control; mA and/or kV adjustment per patient size (includes targeted exams where dose is matched to clinical indication); or iterative reconstruction. Contrast material: OMNI 350; Contrast volume: 100 ml; Contrast route: INTRAVENOUS (IV); COMPARISON: CT abdomen pelvis w con* [id number] 05/20/2019 12:38 PM RADIATION DOSE METRICS: Total DLP (mGy-cm): 895 FINDINGS: Lungs: Subsegmental bibasilar atelectasis. The visualized lung bases are otherwise grossly clear. Diaphragm: No evidence of diaphragmatic defect. Liver: Hepatic steatosis. No evidence of focal hepatic lesion. Gallbladder and biliary ducts: Status post cholecystectomy. No evidence of intrahepatic or extrahepatic biliary dilatation. Pancreas: Unremarkable. Spleen: Unremarkable. Adrenal glands: Unremarkable. Kidneys and ureters: No renal parenchymal abnormality. No hydronephrosis or ureteral stone. Stomach and bowel: No evidence of bowel obstruction or perienteric inflammatory changes. Appendix: Normal appendix. Intraperitoneal space: No evidence of free air or fluid collection. Vasculature: No aneurysmal dilatation or dissection of the abdominal aorta. The celiac trunk, SMA and [place] are grossly patent. No evidence of IVC thrombus. The portal vein, SMV and splenic veins are grossly patent. Lymph nodes: No adenopathy. Urinary bladder: Grossly unremarkable. Reproductive: Grossly unremarkable. Bones/joints: No evidence of acute fracture or aggressive osseous lesion. Thoracolumbar postsurgical changes noted. Chronic deformity of the posterior right iliac bone. Soft tissues: No evidence of fluid collection or hematoma in the superficial soft tissues. CT/CT abdomen pelvis w con* [id number] IMPRESSION: 1. No evidence of acute abnormality in the abdomen or pelvis.
[2023-11-23 16:09] VITALS: BP 132/98; PULSE 63; RESP 16; O2SAT 97
--- NOTE | 2023-11-23 16:38 | ED_ITS ---
HPI - Abdominal Pain 2 General: Chief Complaint: Abdominal Pain Stated Complaint: blood in stools, right side pain Time Seen by Provider: 11/23/23 16:01 History of Present Illness: 63-year-old female with a history of hyp erlipidemia and hypothyroidism who presents emergency room with abdominal pain, GI bleeding and now constipation. She says he went to [facility] yesterday for this and they sat there for 8 hours and never saw a doctor until he finally just left. She continues to have right sided abdominal pain. She says she has not had a bowel movement since she had bloody stools a couple days ago. She says she initially had some red blood and then had some black blood. Sounds like this was just a single episode Related Data Home Medications Medication Instructions Recorded Confirmed Fish Oil 1 cap PO DAILY 10/16/19 11/08/23 Otc Gummies To Go With Fish Oi 1 tab PO DAILY 10/16/19 11/08/23 aspirin 81 mg tablet,delayed 81 mg PO DAILY 10/16/19 11/08/23 release (Aspir-) atorvastatin 10 mg tablet 10 mg PO BEDTIME 10/16/19 11/08/23 levothyroxine 50 mcg tablet 50 mcg PO QAM 10/16/19 11/08/23 (Euthyrox) multivitamin with minerals-folic 400 mcg PO DAILY 10/16/19 11/08/23 acid 200 mcg chewable tablet (Adult Multivitamin Gummies) Previous Rx's Medication Instructions Recorded clobetasol 0.05 % topical cream 1 applic topical BID 2 weeks #45 04/10/20 grams estradiol 0.01% (0.1 mg/gram) 0.25 g vaginal DAILY 2 weeks #42.5 04/10/20 vaginal cream (Estrace) grams diazepam 5 mg tablet (Valium) 5 mg PO BID PRN anxiety #4 tabs 07/18/22 potassium chloride 10 mEq 10 meq PO DAILY #90 tabs 10/09/22 tablet,extended release night splint #1 ea 11/20/22 metoprolol tartrate 50 mg tablet See Rx Instructions .Route 12/24/22 .COMPLEX #180 tabs magnesium L-lactate 84 mg See Rx Instructions .Route 04/08/23 tablet,extended release .COMPLEX #90 tabs hydrochlorothiazide 12.5 mg tablet See Rx Instructions .Route 06/02/23 .COMPLEX #90 tabs cyclobenzaprine 10 mg tablet 10 mg PO TID PRN muscle spasm #30 11/08/23 tabs glycerin (adult) 1 supp [place] DAILY PRN constipation 11/23/23 #12 ea polyethylene glycol 3350 17 17 g PO DAILY #510 grams 11/23/23 gram/dose oral powder (Miralax) tramadol 50 mg tablet 50 mg PO Q8H PRN pain #20 tabs 11/23/23 Allergies Allergy/AdvReac Type Severity Reaction Status Date / Time morphine Allergy ALGY-Hives Verified 11/23/23 11:39 Review of Systems 2 Narrative: Constitutional symptoms: Negative except as documented in HPI. Skin symptoms: Negative except as documented in HPI. Eye symptoms: Negative except as documented in HPI. ENMT symptoms: Negative except as documented in HPI. Respiratory symptoms: Negative except as documented in HPI. Cardiovascular symptoms: Negative except as documented in HPI. Gastrointestinal symptoms: Negative except as documented in HPI. Genitourinary symptoms: Negative except as documented in HPI. Musculoskeletal symptoms: Negative except as documented in HPI. Neurologic symptoms: Negative except as documented in HPI. Psychiatric symptoms: Negative except as documented in HPI. Endocrine symptoms: Negative except as documented in HPI. PFSH ED 2 PFSH: Medical History Diabetes Hyperlipidemia Hypertension Surgical History Status post laparoscopic cholecystectomy (05/22/19) History of back surgery History of delivery Social History Smoking and tobacco/nicotine status: never used tobacco/nicotine Alcohol intake: former Substance/Drug Use: never Physical Exam 2 Narrative: EXAM NARRATIVE: General: Alert, no acute distress. Skin: Warm, dry. Head: Normocephalic, atraumatic. Neck: Supple, trachea midline. Eye: Extraocular movements are intact. Ears, nose, mouth and throat: mucosa moist. Cardiovascular: Regular, Normal peripheral perfusion. Respiratory: Lungs are clear to auscultation, respirations are non-labored, breath sounds are equal, Symmetrical chest wall expansion. Gastrointestinal: Soft, right-sided abdominal tenderness, Non distended Musculoskeletal: Normal ROM, no deformity. Neurological: Alert and oriented, No focal neurological deficit observed. Psychiatric: Cooperative, appropriate mood & affect. Course 2 Vital Signs: Vital signs: Vital Signs Temperature 97.7 F 11/23/23 11:36 Pulse Rate 63 11/23/23 16:09 Respiratory Rate 16 11/23/23 16:09 Blood Pressure 132/98 11/23/23 16:09 Pulse Oximetry 97 11/23/23 16:09 Oxygen Delivery Me thod Room Air 11/23/23 16:09 MDM - Abdominal Pain Medical Decision Making Medical decision making: Differential diagnosis for this patient with right sided abdominal pain including but not limited to and based on the above HPI, review of systems and physical exam: Ureterolithiasis. Urinary tract infection. Appendicitis. colitis. small bowel obstruction. Crohn's flare. Pancreatitis. Cholelithiasis or cholecystitis. Hepatitis. Diverticulitis. Constipation. ovarian cyst. ovarian torsion Workup: Orders were placed to evaluate differential diagnosis based on the above differential, HPI and exam: Lab Review: Laboratory results were reviewed and interpreted by myself the emergency room physician. Lab work is unremarkable. Mild leukocytosis a white count 11.4. Hemoglobin is normal at 15. BUN/creatinine are normal at 14 and 0.6. This indicates she has not had a recent upper GI bleed. Also no significant bleeding as she is not anemic. CT of the abdomen pelvis with contrast: No acute process. This was reviewed and interpreted by myself the emergency room physician. I also reviewed the radiology report. I reviewed the patient's medical record Reexamination: Patient remained stable. No increased work of breathing. No altered mental status. No focal motor deficits. Assessment and plan: Abdominal pain Constipation Rectal bleeding Mild dehydration ?Normal saline bolus, IV Toradol and a bottle of mag citrate. - Discharged home - Discussed findings and plan with patient. Answered any questions. - All laboratory values were reviewed and interpreted personally by myself, the ER physician - All imaging was reviewed and interpreted personally by myself, the ER physician. - Evaluation and treatment of this problem were appropriate in the emergency setting Lab Data 11/23/23 12:59 11/23/23 12:59 Labs/Radiology: Radiology Impressions Abdomen/Pelvis CT 11/23/23 14:25 IMPRESSION: 1. No evidence of acute abnormality in the abdomen or pelvis. Laboratory Results WBC 11.41 10^3/uL (3.29-11.43) 11/23/23 12:59 RBC 5.29 10^6/uL (3.85-5.65) 11/23/23 12:59 Hgb 15.10 g/dL (11.27-16.99) 11/23/23 12:59 Hct 45.4 % (36-47) 11/23/23 12:59 MCV 85.8 fl (85-98) 11/23/23 12:59 MCH 28.5 pg (27-33) 11/23/23 12:59 MCHC 33.3 g/dL (30-55) 11/23/23 12:59 RDW 14.0 % (12.1-15.1) 11/23/23 12:59 Plt Count 287 10^3/cmm (157-399) 11/23/23 12:59 MPV 8.6 fL (7.4-10.4) 11/23/23 12:59 Neut % (Auto) 48.2 % 11/23/23 12:59 Lymph % (Auto) 44.0 % 11/23/23 12:59 [place] % (Auto) 6.0 % 11/23/23 12:59 Eos % (Auto) 1.0 % 11/23/23 12:59 Baso % (Auto) 0.4 % 11/23/23 12:59 Neut # (Auto) 5.52 10^3/uL (1.8-7.7) 11/23/23 12:59 Lymph # (Auto) 5.0 10^3/uL (0.8-4.8) H 11/23/23 12:59 [place] # (Auto) 0.7 10^3/uL (0.2-0.9) 11/23/23 12:59 Eos # (Auto) 0.1 10^3/uL (0.0-0.8) 11/23/23 12:59 Baso # (Auto) 0.0 10^3/uL (0.0-0.1) 11/23/23 12:59 Nucleated RBC % (auto) 0 % 11/23/23 12:59 Nucleated RBCs # 0.0 /100WBC 11/23/23 12:59 PT 13.60 SECONDS (12.1-14.9) 11/23/23 12:59 INR 1.01 (0.8-1.2) 11/23/23 12:59 APTT 25.7 SECONDS (23.9-36.7) 11/23/23 12:59 Sodium 136 mmol/L (136-145) 11/23/23 12:59 Potassium 3.8 mmol/L (3.5-5.1) 11/23/23 12:59 Chloride 100 mmol/L (98-107) 11/23/23 12:59 Carbon Dioxide 26 mmol/L (22-29) 11/23/23 12:59 Anion Gap 13.8 (5-19) 11/23/23 12:59 BUN 14 mg/dL (8-23) 11/23/23 12:59 Creatinine 0.6 mg/dL (0.5-0.9) 11/23/23 12:59 GFR Calculation 100.6 mL/min (90-130) 11/23/23 12:59 Glucose 104 mg/dL (65-115) 11/23/23 12:59 POC Glucose 96 mg/dL (70-110) 11/23/23 13:05 Calculated Osmolality 283 mOsm/kg (285-295) L 11/23/23 12:59 Calcium 9.6 mg/dL (8.5-10.5) 11/23/23 12:59 Total Bilirubin 0.4 mg/dL (0.15-1.2) 11/23/23 12:59 AST 24 U/L (0-32) 11/23/23 12:59 ALT 40 U/L (0-33) H 11/23/23 12:59 Alkaline Phosphatase 105 U/L (35-105) 11/23/23 12:59 Total Protein 8.2 g/dL (6.6-8.7) 11/23/23 12:59 Albumin 4.4 g/dL (3.5-5.2) 11/23/23 12:59 Globulin 3.8 g/dL (1.3-4.6) 11/23/23 12:59 Lipase 37 U/L (13-60) 11/23/23 12:59 All radiology interpretation(s) finalized by discharge Discharge Plan Discharge Patient Disposition: Home Clinical Impression: Abdominal pain, Constipation Condition: Stable Prescriptions: New tramadol 50 mg tablet 50 mg PO Q8H PRN (Reason: pain) Qty: 20 0RF polyethylene glycol 3350 [Miralax] 17 gram/dose powder 17 g PO DAILY Qty: 510 0RF Rx Instructions: Take 1-2 scoops daily for the next 3 months to keep stools soft glycerin (adult) Suppository 1 supp [place] DAILY PRN (Reason: constipation) Qty: 12 0RF No Action clobetasol 0.05 % cream 1 applic topical BID 14 Days Qty: 45 0RF Rx Instructions: use twice daily for two weeks then twice a week after that. estradiol [Estrace] 0.01 % (0.1 mg/gram) cream 0.25 g vaginal DAILY 14 Days Qty: 42.5 0RF Rx Instructions: for 14 days, then twice weekly after that. cyclobenzaprine 10 mg tablet 10 mg PO TID PRN (Reason: muscle spasm) Qty: 30 3RF (DME) night splint See Rx Instructions .Route .MEDSUPPLY Qty: 1 0RF Rx Instructions: As directed diazepam [Valium] 5 mg tablet 5 mg PO BID PRN (Reason: anxiety) Qty: 4 0RF Rx Instructions: take 2 on 07/22 one 30 min before apt and one when you arrive then two on 08/[address] potassium chloride 10 mEq tablet extended release 10 meq PO DAILY Qty: 90 3RF metoprolol tartrate 50 mg tablet See Rx Instructions .ROUTE .COMPLEX Qty: 180 3RF Dose Instruction: TAKE 1 TABLET BY MOUTH TWICE A DAY Rx Instructions: TAKE 1 TABLET BY MOUTH TWICE A DAY magnesium L-lactate 84 mg tablet extended release See Rx Instructions .ROUTE .COMPLEX Qty: 90 3RF Dose Instruction: TAKE 1 TABLET BY MOUTH EVERY DAY Rx Instructions: TAKE 1 TABLET BY MOUTH EVERY DAY hydrochlorothiazide 12.5 mg tablet See Rx Instructions .ROUTE .COMPLEX Qty: 90 0RF Dose Instruction: TAKE 1 TABLET BY MOUTH EVERY DAY Rx Instructions: TAKE 1 TABLET BY MOUTH EVERY DAY atorvastatin 10 mg tablet 10 mg PO BEDTIME Aspir-81 81 mg Tablet,Delayed Release (Dr/Ec) 81 mg PO DAILY Euthyrox 50 mcg tablet 50 mcg PO QAM Adult Multivitamin Gummies 200 mcg Tablet,Chewable 400 mcg PO DAILY Fish Oil 1 cap PO DAILY Otc Gummies To Go With Fish Oi 1 tab PO DAILY Rx Instructions: PT STATES SHE TAKES SOME KIND OF GUMMIE WITH HER FISH OIL BUT CANT REMEMBER THE NAME OF IT Discharge Orders: Discharge ED (Routine); Ordered 11/23/23 Ordered By: Leonor De Santiago Referrals: Lisette Berg FNP [Primary Care Provider] - Discharge Diet: Advance as tolerated Discharge Activity: Increase activity as tolerated Patient Instructions: Constipation (ED), Rectal Bleeding (ED), Abdominal Pain (ED) Activity Restrictions/Additional Instructions: Thank you for choosing [facility] for your healthcare needs today. Please realize this is an emergency room and that we are providing you with a medical screening exam and this may not be complete and all inclusive of all the testing and or work up that you may need to determine your ailment or severity of your illness. You have been screened and evaluated and felt safe for discharge. Health conditions do change or evolve sometimes and as such it is important that you follow up with your Primary Doctor to be re checked, 3-5 days is a general good time frame for follow up. You are always welcome to return to the ED for re assessment if your symptoms are worsening or you have new concerns Coding Level of Care Code ED Pantograph Watcher for Miguel Gutierrez
[2023-11-23] MEDS: iohexol 350 mg/mL 500 mL Btl (per mL) IV (16:46)
[2023-11-23 17:30] VITALS: BP 127/90; PULSE 66; O2SAT 95
[2023-11-23] MEDS: magnesium citrate Btl 296 mL PO (17:49)
[2023-11-23] MEDS: sodium chloride 0.9% 1,000 ML 999 ML IV (17:50)
[2023-11-23] MEDS: ketorolac 30 mg/mL INJ IVP (17:52)
--- NOTE | 2023-11-23 17:58 | PC.NURSE ---
pt states her blood sugar is low, 69, pt given peanut butter, crackers, and apple juice.
[2023-11-23 18:00] VITALS: BP 131/92; PULSE 64; RESP 16; O2SAT 98
[2023-11-23 18:30] VITALS: BP 131/101; PULSE 72; RESP 16; O2SAT 100
[2023-11-23 18:51] VITALS: BP 128/92; PULSE 62; O2SAT 97
== END 2023-11-23 18:52 | disposition home or self-care (01) ==
PROVIDERS: Physician Assistant; Emergency Provider Emergency Medicine; PCP Nurse Practitioner Family
DX: K59.00 Constipation, unspecified (principal); R10.9 Unspecified abdominal pain; Z79.82 Long term (current) use of aspirin; E11.9 Type 2 diabetes mellitus without complications; E78.5 Hyperlipidemia, unspecified; I10 Essential (primary) hypertension
CPT/HCPCS: 36415; 36416; 74177; 80053; 82962; 83690; 85025; 85610; 85730; 96361; 96374; 99285; J1885; J7030

== ENCOUNTER → 2023-12-02 10:45 | Outpatient (BNVA) | payer MEDICARE, SELFPAY | PROVIDERS: PCP Nurse Practitioner Family; Visit Provider Podiatrist Foot & Ankle Surgery | DX: E11.8 Type 2 diabetes mellitus with unspecified complications (principal); E11.42 Type 2 diabetes mellitus with diabetic polyneuropathy; L60.3 Nail dystrophy; I73.9 Peripheral vascular disease, unspecified | CPT/HCPCS: 11721; 99212 ==

== ENCOUNTER → 2024-02-02 09:59 | Outpatient (BNVA) | payer MEDICARE, SELFPAY | PROVIDERS: PCP Nurse Practitioner Family; Visit Provider Podiatrist Foot & Ankle Surgery | DX: R22.41 Localized swelling, mass and lump, right lower limb (principal); E11.8 Type 2 diabetes mellitus with unspecified complications; I73.9 Peripheral vascular disease, unspecified; E11.42 Type 2 diabetes mellitus with diabetic polyneuropathy; L60.3 Nail dystrophy; M79.89 Other specified soft tissue disorders | CPT/HCPCS: 11721; 99214 ==

== ENCOUNTER 2024-03-04 07:53 | Day surgery (SDC) | payer MEDICARE, SELFPAY ==
--- NOTE | 2024-03-01 11:52 | ECG_ITS ---
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
--- NOTE | 2024-03-01 12:44 | ANES.PREANE2 ---
Pre-Anesthetic Assessment Height/Weight: Height 5 ft 3 in Preop Diagnosis: Mass of soft tissue of ankle Operation Date: 03/04/24 09:40 Proposed Procedures p Excision Mass/Lesion(Right) - Brad Moore DPM Was Beta Maylin taken within 24 hours: Yes Was Clonidine taken within 24 hours: N/A Social No alcohol and No tobacco Exam alert, oriented x 3, clear to auscultation bilaterally and regular rate & rhythm Airway Submandibular: within normal limits Cervical ROM: within normal limits Mallampati: Class III Dentition: full Comments: Comments: Small mouth opening Anesthetic Plan ASA status: 3 Anesthesia: MAC Other: No prior issues with anesthesia Plan to be n.p.o. at midnight prior to surgery History of type 2 diabetes on metformin and Ozempic. Hypertension on HCTZ, losartan and metoprolol Labs 11/23/2023 reviewed and acceptable for procedure EKG today showing sinus rhythm METs greater than 4 Will discuss with surgeon anesthesia plan prior to surgery but tentative plan for MAC with local via surgeon Medications/Allergies Home Medications Medication Instructions Recorded Confirmed Last Taken Type atorvastatin 10 mg tablet 10 mg PO BEDTIME 10/16/19 03/01/24 02/29/24 History levothyroxine 50 mcg tablet 50 mcg PO QAM 10/16/19 03/01/24 03/01/24 History (Euthyrox) estradiol 0.01% (0.1 mg/gram) 0.25 g vaginal DAILY 2 weeks #42.5 04/10/20 03/01/24 Unknown Rx vaginal cream (Estrace) grams night splint #1 ea 11/20/22 02/02/24 Unknown Rx polyethylene glycol 3350 17 17 g PO DAILY #510 grams 11/23/23 03/01/24 02/29/24 Rx gram/dose oral powder (Miralax) semaglutide 0.25 mg or 0.5 mg (2 0.25 mg SUBCUT Q7D 02/02/24 03/01/24 02/25/24 History mg/3 mL) subcutaneous pen injector (Ozempic) hydrochlorothiazide 12.5 mg tablet 12.5 mg PO DAILY 03/01/24 03/01/24 03/01/24 History losartan 25 mg tablet 50 mg PO DAILY 03/01/24 03/01/24 03/01/24 History magnesium L-lactate 84 mg 84 mg PO DAILY 03/01/24 03/01/24 03/01/24 History tablet,extended release metformin 500 mg tablet,extended 500 mg PO DAILY 03/01/24 03/01/24 03/01/24 History release 24 hr metoprolol tartrate 50 mg tablet 50 mg PO BID 03/01/24 03/01/24 03/01/24 History omeprazole 20 mg capsule,delayed 20 mg PO DAILY 03/01/24 03/01/24 03/01/24 History release potassium chloride 10 mEq 10 meq PO DAILY 03/01/24 03/01/24 02/26/24 History tablet,extended release Allergies Allergy/AdvReac Type Severity Reaction Status Date / Time morphine Allergy ALGY-Hives Verified 02/02/24 10:01 [facility] Anesthesia Medical History (Updated 02/02/24 @ 10:26 by Brad Moore DPM) Diabetes Hyperlipidemia Hypertension Surgical History (Updated 03/01/24 @ 11:49 by Marybeth Engel RN) Status post laparoscopic cholecystectomy (05/22/19) History of back surgery History of delivery Social History Smoking and tobacco/nicotine status: unknown if used tobacco/nicotine Alcohol intake: former Substance/Drug Use: never Data Anesthesia Cardiac Studies: Echocardiogram 03/24/22 Cardiac Event Monitor 04/10/22
[2024-03-04] VITALS (8 sets, daily range): BP systolic 87–119; BP diastolic 60–82; PULSE 64–83; RESP 16; TEMP 36.3–36.4; O2SAT 95–99
[2024-03-04 08:27] LABS: Glucose Point of Care 140 mg/dL (70-110)
[2024-03-04] MEDS: sodium chloride 0.9% 1,000 ML 30 ML IV (08:31)
--- NOTE | 2024-03-04 09:29 | W.PM.OPSUD ---
Surgery/Procedure H&P Update DATE OF PROCEDURE: March 04, 2024 DATE H&P PERFORMED: 02/02/24 H&P UPDATE INFORMATION: I have reviewed H&P completed within last 30 days, I have examined patient prior to procedure, No changes to prior documentation and H&P is in [facility] EMR on date indicated PREOP DIAGNOSIS: Soft tissue mass right ankle PLANNED PROCEDURE: Operation Date: 03/04/24 09:15 Proposed Procedures p Excision Mass/Lesion(Right) - Brad Moore DPM
--- NOTE | 2024-03-04 09:31 | P.ANESUD_ITS ---
Pre-Anesthetic Update Pre-Anesthetic Assessment: Date of Surgery/Procedure: 03/04/24 Preop Talia gnosis: Soft tissue mass right ankle Proposed Procedure: Operation Date: 03/04/24 09:15 Proposed Procedures p Excision Mass/Lesion(Right) - Brad Moore DPM Changes from Pre-Anesthetic Assessment: No changes since I last saw this patient, plan for MAC with local via surgeon. A.m. blood sugar 140 Last Intake: Intake Last Liquid Date 03/03/24 Last Liquid Time 19:30 Last Solid Date 03/03/24 Last Solid Time 19:30 Vitals: Temperature 97.5 F L 03/04/24 08:06 Temperature Source Temporal Artery S can 03/04/24 08:06 Pulse Rate 83 03/04/24 08:06 Respiratory Rate 16 03/04/24 08:06 Blood Pressure 119/82 03/04/24 08:06 Blood Pressure Gayatri n 94 03/04/24 08:06 Pulse Oximetry 97 03/04/24 08:06 Oxygen Delivery Me thod Room Air 03/04/24 08:07 Cardiac Studies: Echocardiogram 03/24/22 Cardiac Event Monitor 04/10/22
[2024-03-04] MEDS: ceFAZolin 2,000 mg SDV 2000 MG IVP (09:48)
[2024-03-04] MEDS: BUPivacaine 0.25% INJ 10 mL 20 ML INJECTION (10:12)
[2024-03-04] MEDS: BUPivacaine liposome 13.3 mg/mL SDV 20 mL 266 MG INJECTION (10:12)
--- NOTE | 2024-03-04 10:26 | P.BOP_ITS ---
Date of Procedure: 05/01/23 Surgeon: Brad Moore DPM Reservation Sales Agent(s): Felicia Procedure(s) performed: Soft tissue mass excision right ankle Findings of the procedure(s): Soft tissue mass consistent with lipoma right lateral ankle Estimated blood loss: 1 mL Specimen(s) removed: Soft tissue mass consistent with lipoma sent to pathology for permanent Post-operative diagnosis: Soft tissue mass right lateral ankle
--- NOTE | 2024-03-04 10:27 | P.OP_ITS ---
Operative Report Date of procedure: March 04, 2024 Pre-op diagnosis: Mass of soft tissue of right ankle M79.89 Post-op diagnosis: Mass of soft tissue of right ankle M79.89 Procedure done: Soft tissue mass excision right ankle. CPT code 55243 Implants: 4-0 Vicryl, 4-0 nylon Pathology: Soft tissue mass right ankle consistent with lipoma measured 4 cm x 4 cm x 1.3 cm sent to pathology Surgeon: Brad Moore DPM Underwriting Support Manager: Felicia Estimated blood loss: 1 mL 12 IV fluids: See intraoperative documentation Urine output: None Complications: No complications Findings: See procedure Brief History: 63-year-old female with a history of a lipoma on the right ankle presenting with pain and discomfort due to nerve compression. The primary concern is the impact of the lipoma on adjacent nerves, leading to pain upon palpation or pressure. Current management involves conservative treatment options such as topical Voltaren gel, with surgical removal considered if necessary. 1. Lipoma On Right Ankle The patient presented with a lipoma on the right ankle causing nerve compression and pain. Initial conservative measures include applying topical Voltaren gel (an NSAID) and using a compression sleeve to alleviate symptoms. If the symptoms persist and conservative treatment fails, surgical removal of the lipoma will be scheduled on an outpatient basis. The procedure will be conducted with twilight anesthesia to ensure patient comfort and a quick recovery. The scheduling is being coordinated to fit the next available surgery date, which may occur after the New Year due to current availability. - Apply Voltaren gel as directed for pain relief on the right ankle. - Use a compression sleeve to support the ankle and alleviate symptoms. - Monitor symptoms and report any increase in pain or new symptoms. - Consider scheduling surgery for lipoma removal if conservative treatments do not provide adequate relief. In evaluating the patient's condition, the primary consideration was the lipoma on the right ankle causing nerve compression and pain. The symptoms suggest the lipoma is negatively impacting the adjacent nerve structures, resulting in discomfort. Topical use of NSAIDs, such as Voltaren gel, and a compression sleeve were recommended as initial conservative approaches. If these do not yield the desired symptom relief, surgical excision will be pursued. Outpatient surgical excision was selected due to its effectiveness and patient preference for a minimally invasive solution, with twilight anesthesia to ensure comfort during the procedure. The expected outcome is full resolution of symptoms post- surgery. Scheduling is coordinated to the patient's timing preferences and surgical availability. I reviewed at length with the patient, the risks, potential complications, benefits, alternatives, expectations, and typical outcomes associated with the surgery. The risks and potential complications were explained in detail, including but not limited to infection, wound dehiscence or soft tissue complications, bleeding and hematoma, chronic edema, neuritis or nerve damage producing numbness or chronic pain, CRPS, failure to relieve pain or worsening pain, thick / painful / unsightly scar, limited motion / stiffness, malposition, delayed union, malunion, or nonunion, fracture, reaction to implants, anesthetic complications, venous thromboembolism, and deformity recurrence. I discussed the notion of no regrets with the patient as it pertains to complications and outcomes. The patient seemed to understand the nature of the proposed care and required convalescence. They asked appropriate questions, answered to their satisfaction. They are aware no guarantees can be made as to a satisfactory outcome and they understand there may be other possible unforeseen complications or outcomes not listed here that will be treated accordingly if they arise. There were no written or implied guarantees given to the patient. They gave informed consent to proceed. Procedure: Under mild sedation patient was brought to the operating room and remained on the gurney in supine position. A timeout was performed. Anesthesia was then administered by the anesthesia service. Local anesthesia injected by myself consisting of a V-block with local anesthetic consisting of Marcaine and subcutaneously Exparel. Well-padded pneumatic tourniquet applied to the patient's right high calf. Right lower extremity was scrubbed, prepped and draped utilizing normal aseptic technique. Right foot and ankle were then exanguinated with Esmarch bandage and tourniquet inflated to 250 mmHg. Palpable soft tissue mass at the anterolateral right ankle was palpated directly over this a curvilinear incision was performed through skin with a 15 blade and the mass was immediately encountered, this incorporated through subcutaneous tissue down to the layer of myofascial layer this was delineated and sharply excised measuring 4 cm x 4 cm x 1.3 cm consistent with lipoma no remaining soft tissue abnormality was appreciated intraoperatively and the incision was irrigated with copious amounts of sterile skin solution deep fascia reapproximated with 4-0 Vicryl subcutaneous tissue with 4-0 Vicryl and skin with 4-0 nylon. Dressing of Adaptic sterile 4 x 4's Kerlix and Nathanael wrap were applied followed by postop shoe. Tourniquet was deflated and a prompt hyperemic response is noted to the distal digits of the right foot. Patient tolerated the procedure and anesthesia well and was transferred to the PACU with vital signs stable and vascular status intact. Following a period of postoperative monito ring so we discharged home without home care instructions and scheduled follow- up
--- NOTE | 2024-03-04 11:20 | ANE.PACU2 ---
Inpatient post-anesthesia follow up: Airway intact: Yes Vital signs: Temperature 97.6 F Pulse Rate 68 Respiratory Rate 16 Blood Pressure 114/74 Pulse Oximetry 97 Oxygen Delivery Me thod Room Air Oxygen Flow Rate Fraction of Inspir ed Oxygen Hydration adequate: Yes Nausea and vomiting: No Pain level: 1 Mental status: Baseline
== END 2024-03-04 11:20 | disposition home or self-care (01) ==
PROVIDERS: PCP Nurse Practitioner Family; Visit Provider Podiatrist Foot & Ankle Surgery
PROC: (CPT 27619; principal; 2024-03-04 09:05)
DX: M79.89 Other specified soft tissue disorders (principal); E11.9 Type 2 diabetes mellitus without complications; I10 Essential (primary) hypertension; Z79.84 Long term (current) use of oral hypoglycemic drugs; E78.5 Hyperlipidemia, unspecified
CPT/HCPCS: 27619; 36416; 82962; 88304; 93005; C9290; J0690; J2704; J3010; J3490; J7030

== ENCOUNTER → 2024-03-17 15:08 | Outpatient (BNVA) | payer MEDICARE, SELFPAY | PROVIDERS: PCP Nurse Practitioner Family; Visit Provider Podiatrist Foot & Ankle Surgery | DX: Z98.890 Other specified postprocedural states (principal) | CPT/HCPCS: 99024 ==

== ENCOUNTER → 2024-05-03 09:28 | Outpatient (BNVA) | payer MEDICARE, SELFPAY | PROVIDERS: PCP Nurse Practitioner Family; Visit Provider Podiatrist Foot & Ankle Surgery | DX: E11.42 Type 2 diabetes mellitus with diabetic polyneuropathy (principal); L60.3 Nail dystrophy; I73.9 Peripheral vascular disease, unspecified; Z79.84 Long term (current) use of oral hypoglycemic drugs | CPT/HCPCS: 99213 ==

== ENCOUNTER 2024-06-24 13:48 | Outpatient (CLI) | payer MEDICARE, SELFPAY ==
--- NOTE | 2024-06-24 13:51 | XR_ITS ---
WS: [id number] SCREENING DEXA SCAN GOGETMi / ?.?? CLINICAL INFORMATION: POSTMENOPAUSAL COMPARISON: 2021. FINDINGS: The LEFT forearm bone mineral density measures 0.801. This corresponds to a T score score of -0.9 and Z score of 0.5. Left femoral neck bone mineral density measures 1.001 g/cm2. This corresponds to a T score of -0.1 and Z score of 0.4. Right femoral neck bone mineral density measures 1.006 g/cm2. This corresponds to a T score 0.0of and Z score of 0.4. Mean femoral neck bone mineral density measures 1.003 g/cm2. This corresponds to a T score of 0.0 and Z score of 0.4. XR/XR DEXA axial skeleton* [id number] IMPRESSION: Normal bone mineralization LEFT forearm approaching osteopenia. Normal bone min eralization femurs. Patient's FRAX calculated 10 year probability for major osteoporotic fracture i s 6.8% and osteoporotic hip fracture is 0.4%.
== END 2024-06-24 13:49 | disposition home or self-care (01) ==
PROVIDERS: PCP Nurse Practitioner Family; Visit Provider Nurse Practitioner Family
DX: Z78.0 Asymptomatic menopausal state (principal)
CPT/HCPCS: 77080

== ENCOUNTER → 2024-08-02 09:22 | Outpatient (BNVA) | payer MEDICARE, SELFPAY | PROVIDERS: PCP Nurse Practitioner Family; Visit Provider Podiatrist Foot & Ankle Surgery | DX: E11.42 Type 2 diabetes mellitus with diabetic polyneuropathy (principal); L60.3 Nail dystrophy; E11.8 Type 2 diabetes mellitus with unspecified complications; I73.9 Peripheral vascular disease, unspecified; Z79.84 Long term (current) use of oral hypoglycemic drugs | CPT/HCPCS: 11721 ==

== ENCOUNTER → 2024-09-21 11:44 | Outpatient (BNVA) | payer MEDICARE, SELFPAY | PROVIDERS: PCP Nurse Practitioner Family; Visit Provider Internal Medicine Cardiovascular Disease | DX: R07.89 Other chest pain (principal); R94.31 Abnormal electrocardiogram [ECG] [EKG]; I10 Essential (primary) hypertension; E78.2 Mixed hyperlipidemia; E11.9 Type 2 diabetes mellitus without complications; Z79.84 Long term (current) use of oral hypoglycemic drugs; Z79.85 Long-term (current) use of injectable non-insulin antidiabetic drugs; R06.09 Other forms of dyspnea; Z87.891 Personal history of nicotine dependence; R06.02 Shortness of breath; R07.9 Chest pain, unspecified; Z98.61 Coronary angioplasty status | CPT/HCPCS: 93005; 99215 ==

== ENCOUNTER 2024-10-18 09:22 | Outpatient (CLI) | payer MEDICARE, SELFPAY ==
--- NOTE | 2024-10-18 | ECG_ITS ---
[employer] Test Date: 2024-10-18 Pat Name: Vivian Goff Department: Room: Gender: Female Therapy Administrative Assistant: : 1960 Requested By: Rochelle Wilkerson Order Number: [id number] Horacio MD: Rochelle Wilkerson M.D. Interpretive Statements Lung unchanged pre/post procedure; Intraprocedure shortess of breath; Symptoms resoled by discharge PROCEDURE: At the baseline, the EKG revealed normal sinus rhythm with a rate of 71 bpm. Nonspecific T wave changes in the anterior leads and high lateral leads.. The basal heart was 71 bpm with a blood pressue of 138/81 mm of Hg Lexiscan was infused over a period of 20 seconds. A total of 0.4 milligrams of Lexiscan was infused. The stress phase was continued for a total of 5 minutes. Heart rate at the end of the stress phase was 82 bpm with a blood pressure 106/78 mm of Hg. The EKG at the peak infusion revealed diffuse nonspecific ST-T changes in the inferior and anterolateral leads. Sestamibi was injected 20 seconds after the Lexiscan infusion. Heart rate at the end of the recovery phase was 82 bpm with a blood pressure of mm of Hg. CONCLUSION: 1. Nonspecific EKG changes with the LexiScan infusion 2. No LexiScan induced chest pain or cardiac arrhythmia 3. Normal blood pressure and heart rate response 4. Sestamibi/sestamibi perfusion scan pending; see separate report. Electronically Signed On 10-22-2024 13:51:18 CDT by Rochelle Wilkerson M.D. [email or web address]
--- NOTE | 2024-10-18 09:52 | NMCV_ITS ---
NM will perf SPECT r/s* [id number] Vivian Goff Age: 64 Gender: F : 1960 Exam Date: 10/18/2024 10:44 Ordering Phys: Rochelle Wilkerson MD ([email or web address]) Technologist: VIVIAN Bolton Exam Location: [facility] Indications: cp STRESS TEST [facility] IMAGE PROTOCOL Rest/Stress 1 Lexiscan Day Radiopharmaceutical Dose (mCi) Administration Site Administered by Rest: Tc-99m 10.7 IV Pattie Ojeda [employer] Sestamibi Stress:Tc-99m 32.4 IV Pattie Ojeda, [employer] Sestamibi Rest: 18-Oct-2024 60 Discovery 630 Stress: 18-Oct-2024 30 Discovery 630 0.4mg Lexiscan. Images obtained in supine and prone position. SPECT RESULTS Technical Quality: Good Raw Data Analysis: Normal Image Corrections: No attenuation or motion correction applied Summed Stress Score: 0 Summed Rest Score: 0 Summed Difference Score: 0 PERFUSION FINDINGS Fairly uniform myocardial tracer uptake with no significant perfusion abnormalities FUNCTIONAL RESULTS (calculated via Gated SPECT) Stress Image LV EF (%): 89 Stress EDV (mL):57 TID: 1 Stress ESV (mL):6 FUNCTIONAL FINDINGS: Segmental wall motion analysis revealing no gross wall motion abnormalities IMPRESSIONS 1. Myocardial perfusion imaging revealing uniform tracer uptake with no significant perfusion abnormalities. 2. Normal LV ejection fraction of 89%. 3. LV wall motion analysis revealing no gross wall motion abnormalities.. 4. Normal LV volume. Low probability for coronary ischemia, based on the above findings Dr Rochelle Wilkerson MD FACC (Electronically Signed) Final Date: 19 October 2024 16:41 S
[2024-10-18 10:05] VITALS: BMI 37.2
[2024-10-18 11:34] VITALS: BP 106/78; PULSE 81
== END 2024-10-18 09:23 | disposition home or self-care (01) ==
LOC: CDL 09:23
PROVIDERS: PCP Nurse Practitioner Family; Visit Provider Internal Medicine Cardiovascular Disease
DX: R07.9 Chest pain, unspecified (principal); R93.1 Abnormal findings on diagnostic imaging of heart and coronary circulation
CPT/HCPCS: 36415; 78452; 93017; 96374; A9500; J2785

== ENCOUNTER 2024-10-24 12:18 | Outpatient (CLI) | payer MEDICARE, SELFPAY | END 2024-10-24 12:19 | disposition home or self-care (01) | LOC: RAD 12:19 | PROVIDERS: PCP Nurse Practitioner Family; Visit Provider Internal Medicine Cardiovascular Disease | DX: R06.09 Other forms of dyspnea (principal) | CPT/HCPCS: 93306 ==

== ENCOUNTER → 2024-11-08 08:54 | Outpatient (BNVA) | payer MEDICARE, SELFPAY | PROVIDERS: PCP Nurse Practitioner Family; Visit Provider Podiatrist Foot & Ankle Surgery | DX: E11.42 Type 2 diabetes mellitus with diabetic polyneuropathy (principal); L60.3 Nail dystrophy; E11.8 Type 2 diabetes mellitus with unspecified complications; I73.9 Peripheral vascular disease, unspecified; Z79.84 Long term (current) use of oral hypoglycemic drugs | CPT/HCPCS: 99213 ==

== ENCOUNTER → 2025-01-19 14:34 | Outpatient (BNVA) | payer MEDICARE, SELFPAY | PROVIDERS: PCP Nurse Practitioner Family; Visit Provider Internal Medicine Cardiovascular Disease | DX: R07.89 Other chest pain (principal); R94.31 Abnormal electrocardiogram [ECG] [EKG]; I10 Essential (primary) hypertension; E78.2 Mixed hyperlipidemia; E11.9 Type 2 diabetes mellitus without complications; Z79.84 Long term (current) use of oral hypoglycemic drugs; R06.09 Other forms of dyspnea; Z87.891 Personal history of nicotine dependence | CPT/HCPCS: 99214 ==

== ENCOUNTER → 2025-02-07 09:29 | Outpatient (BNVA) | payer MEDICARE, SELFPAY | PROVIDERS: PCP Nurse Practitioner Family; Visit Provider Podiatrist Foot & Ankle Surgery | DX: E11.42 Type 2 diabetes mellitus with diabetic polyneuropathy (principal); L60.3 Nail dystrophy; Z79.84 Long term (current) use of oral hypoglycemic drugs; I73.9 Peripheral vascular disease, unspecified; Z79.85 Long-term (current) use of injectable non-insulin antidiabetic drugs | CPT/HCPCS: 11721; 99213 ==